=== PATIENT | male | born 1950 | race Caucasian/White ===

== ENCOUNTER 2016-12-14 06:25 | Day surgery (SDC) | payer MEDICARE, OTHER ==
[~2016-12-14] VITALS: Ht 193 cm; Wt 110.7 kg
[~2016-12-14 06:25] MED LIST: ATOR20TA PO; CANA100T PO; DILT180C51 PO; DUTA0.5C9 PO; EXEN2VIA SQ; FLEC100T2 PO; GEMF600T61 PO; GLYB5TAB8 PO; HYDR-2164 PO; INDO25CA PO; LISI10TA7 PO; METF10002 PO; RIVA20TA PO
--- OUTSIDE RECORDS SUMMARY | 2016-12-14 06:29 | XMS REPORT | Continuity of Care Document ---
Author Author Junie Walker RN Ambulatory Address [address] [place] [address] [place] [address] Phone Care Team Providers Care Filbert Grower Name Role Phone Jose Womack PP Unavailable Payers Payer name Insurance type Covered democrat ID Authorization(s) Unknown Problems Condition Effective Dates (start - stop) Clinical Status Hypertension, Benign - *Chronic Diabetes Mellitus Type 2, Uncomplicated - *Chronic Osteoarthrosis, unspecified whether generalized or localized, involving unspecified site - *Chronic Hypercholesterolemia - *Chronic Atrial Fibrillation - *Chronic Hypertension, Benign - Chronic Diabetes Mellitus Type 2, Uncomplicated - Chronic Osteoarthrosis, unspecified whether generalized or localized, involving unspecified site - Chronic Hypercholesterolemia - Chronic Atrial Fibrillation - Chronic Sleep Apnea, Obstructive - Uncertain Atrial Fibrillation - *Controlled Hypertension, Benign - *Chronic Diabetes Mellitus Type 2, Uncomplicated - *Chronic Osteoarthrosis, unspecified whether generalized or localized, involving unspecified site - *Chronic Hypercholesterolemia - *Chronic Hypertension, Benign - Chronic Diabetes Mellitus Type 2, Uncomplicated - Chronic Osteoarthrosis, unspecified whether generalized or localized, involving unspecified site - Chronic Hypercholesterolemia - Chronic Hypertension, Benign - *Chronic Diabetes Mellitus Type 2, Uncomplicated - *Chronic Osteoarthrosis, unspecified whether generalized or localized, involving unspecified site - *Chronic Hypercholesterolemia - *Chronic Atrial Fibrillation - *Chronic Hypertension, Benign - Chronic Diabetes Mellitus Type 2, Uncomplicated - Chronic Osteoarthrosis, unspecified whether generalized or localized, involving unspecified site - Chronic Hypercholesterolemia - Chronic Atrial Fibrillation - Chronic BPH - *Chronic PURE HYPERCHOLESTEROLEM - BENIGN HYPERTENSION - OSTEOARTHROS NOS-UNSPEC - DMII WO CMP NT ST UNCNTR - NEED FOR PROPHYLACTIC VACCINATION AND INOCULATION, OTHER VIRAL DISEASES - Hypertension, Benign - *Chronic Diabetes Mellitus Type 2, Uncomplicated - *Chronic Osteoarthrosis, unspecified whether generalized or localized, involving unspecified site - *Chronic Hypercholesterolemia - *Chronic Hypertension, Benign - *Chronic Diabetes Mellitus Type 2, Uncomplicated - *Chronic Hypercholesterolemia - *Chronic Osteoarthrosis, unspecified whether generalized or localized, involving unspecified site - *Chronic Hypertension, Benign - Chronic Diabetes Mellitus Type 2, Uncomplicated - Chronic Hypercholesterolemia - Chronic Osteoarthrosis, unspecified whether generalized or localized, involving unspecified site - Chronic Atrial Fibrillation - *Chronic Family History Family Member Diagnosis Age At Onset Status Unknown Social History Social History Element Description Quantity Unknown Allergies, Adverse Reactions, Alerts Substance Reaction Severity Status Unknown Medications Medication Instructions Dosage Effective Dates (start - stop) Status metoprolol succinate ER 100 mg tablet,extended release 24 hr take 1 tablet ( 100MG) by oral route every day 100 MG - Active metoprolol succinate ER 100 mg tablet,extended release 24 hr take 1 tablet ( 100MG) by oral route every day 100 MG - No Longer Active flecainide 100 mg tablet take 1 tablet (100MG) by oral route every 12 hours 100 MG - Active Viagra 100 mg tablet Take 0.5 tablets by mouth as directed. - Active warfarin 1 mg tablet take 1 tablet (1MG) by oral route every day 1 MG - Active indomethacin 50 mg capsule Take 1 tablet by mouth 3 times a day. 2012 - Active tramadol 50 mg tablet take 1 tablet (50MG) by oral route every 6 hours as needed 50 MG - Active Avodart 0.5 mg capsule take 1 capsule (0.5MG) by oral route every day 0.5 MG - Active Januvia 100 mg tablet take 1 tablet (100MG) by oral route every day 100 MG - Active warfarin 5 mg tablet take 1 tablet (5MG) by oral route every day 5 MG - Active glyburide 5 mg-metformin 500 mg tablet Take 1 tablet by mouth twice a day. - Active Lipitor 20 mg tablet Take 1 by mouth every day. - Active Lopid 600 mg tablet Take 1 tablet by mouth twice a day. - Active hydrochlorothiazide 25 mg tablet Take 1 tablet by mouth every day. 2012 - Active Lotrel 10 mg-20 mg capsule Take 1 capsule by mouth every day. - Active Bydureon 2 mg SubQ suspension,extended release inject (2MG) by subcutaneous route every 7 days once 2 MG - Active metformin 500 mg tablet Take 1 tablet by mouth twice a day. - Active Immunizations Vaccine Date Status Comments Zoster completed Td (adult) completed - Completed reason: other registry Results Test Name Date and Time Measure Units Reference Range Abnormal Flag Comments Panel Description: Metabolic Profile Glucose 07:52:00 195 mg/dL 70-99 H BUN 07:52:00 24 mg/dL 8-26 Creatinine 07:52:00 1.02 mg/dL 0.72-1.25 Calcium 07:52:00 10.3 mg/dL 8.9-10.5 Sodium 07:52:00 142 mEq/L 135-144 Potassium 07:52:00 4.3 mEq/L 3.5-5.2 Chloride 07:52:00 105 mEq/L 99-111 CO2 07:52:00 24 mEq/L 23-31 Anion Gap 07:52:00 13 3-20 Testing performed at [facility] Reference Lab [facility] [address] [place] [address] [employer] Elevator Operator Anderson Keller MD Panel Description: EGFR-[facility] eGFR 07:52:00 >60 mL/min >60 Multiply eGFR results by 1.21 for race.Testing performed at [facility] Reference Lab [facility] [address] [place] [address] [employer] Elevator Operator Anderson Keller MD Panel Description: Prostatic Specific Antigen-[facility] PSA 07:52:00 0.8 ng/mL 0.0-4.5 AUA PSA Best Practice Guidelines: Age-Adjusted PSA Values by Ethnic GroupAge Range Asians - Caucasians Epitzyied04-21 0-2.0 0-2.0 0-2.550-59 0-3.0 0-4.0 0-3.560-69 0-4.0 0-4.5 0-4.570-79 0-5.0 0-5.5 0-6.5Testing performed at [facility] Reference Lab [address] [place] [address] Freight Elevator Operator Anderson Keller MD Panel Description: Hemoglobin N3e-TFP Hemoglobin A1C 07:52:00 8.3 % 4.1-5.6 H Testing performed at [facility] [address] [place] [address] Fre[employer] Elevator Operator Anderson Keller MD Panel Description: EAG Calculation-[facility] Estimated Average Glucose 07:52:00 191.5 mg/dL Testing performed at [facility] [address] [place] [address] [employer] Elevator Operator Anderson Keller MD Panel Description: Protime Pt Type 07:52:00 basic Drug 07:52:00 Coumadin Date-Time Last Meds 07:52:00 09/01/2013 8:00PM Protime-INR 07:52:00 2.6 Units Normal INR(no anticoagulant) 0.8-1.2 UnitsAbnormal INR (no anticoagulant) >1.2 UnitsRoutine Therapeutic INR 2.0-3.0 UnitsTherapeutic (High-Risk) INR 2.5-3.5 Units Vital Signs Date / Time: Height Weight Pulse Rate Blood Pressure Temperature /10:09:00 75.00 in 271.00 lbs 68 /min 120/72 mm[Hg] 98.3 F Procedures Procedure Date Unknown Encounters Encounter Location Date Patient Visit [facility] Patient Visit [facility] Patient Visit [facility] Patient Visit [facility] Patient Visit [facility] Patient Visit [facility] Patient Visit [facility] Patient Visit [facility] Patient Visit [facility] Patient Visit [facility] Patient Visit [facility] Patient Visit [facility] Patient Visit [facility] Patient Visit [facility] Patient Visit [facility] Patient Visit [facility] Patient Visit [facility] Advance Directives Directive Effective Date Unknown
--- OUTSIDE RECORDS SUMMARY | 2016-12-14 06:29 | XMS REPORT | Continuity of Care Document ---
Author Author [facility] Organization [facility] Address Unknown Phone Unavailable Allergies Medications Problems Procedures Results Encounters ACCT No. Visit Date/Time Discharge Status Pt. Type Provider Facility Loc./Unit Complaint [id number] 09/02/2013 08:57:00 09/02/2013 23 :59:59 CLS Outpatient
[2016-12-14 06:52] VITALS: Ht 193 cm; Wt 110.7 kg
[2016-12-14 06:53] VITALS: BP 132/70; PULSE 56; RESP 16; TEMP 97.6; O2SAT 97
--- NOTE | 2016-12-14 07:24 | ANESPREOP ---
Anesthesia Record Date and Time DATE: 12/14/16 TIME: 07:22 Pre-Op Diagnosis cat. lt. eye Proposed Surgical Procedure CAT. LEFT EYE Allergies: Coded Allergies: No Known Drug Allergies (Verified Allergy, Unknown, 12/13/16) Ht/Wt/BMI Height: 6 ' 4.00 " Weight: 110.700 kg BMI: 29.7 kg/m2 Vital Signs Date Time Temp Pulse Resp B/P Pulse Ox O2 Delivery O2 Flow Rate FiO2 12/14/16 06:53 97.6 56 16 132/70 97 Room Air Medications Inpatient Medications Current Medications Medications (Trade) Dose Ordered Sig/Abdoulaye Start Time Stop Time Status Last Admin Dose Admin Gatifloxacin (Zymaxid) 1 drop Q5M 12/14/16 14:15 12/14/16 14:26 Cyclopentolate HCl (Cyclogyl 2%) 1 drop Q5M 12/14/16 14:15 12/14/16 14:26 Tropicamide (Mydriacyl 1% Eye Drops) 1 drop Q5M 12/14/16 14:15 12/14/16 14:26 Phenylephrine HCl (Julián-Synephrine 2.5% Eye Drops) 1 drop Q5M 12/14/16 14:15 12/14/16 14:26 Atorvastatin Calcium (Lipitor) 20 Mg Tablet, 1 TAB PO HS, (Reported) Canagliflozin (Invokana) 100 Mg Tablet, 1 TAB PO DAILY, (Reported) Diltiazem HCl (Cartia Xt) 180 Mg Capsule, 1 TAB PO DAILY, (Reported) Dutasteride (Avodart) 0.5 Mg Capsule, 0.5 MG PO DAILY, (Reported) Exenatide Microspheres (Bydureon) 2 Mg Vial, 2 MG SQ Weekly, (Reported) Flecainide Acetate (Flecainide Acetate) 100 Mg Tablet, 1 TAB PO BID, (Reported) Gemfibrozil (Gemfibrozil) 600 Mg Tablet, 600 MG PO BID, (Reported) Glyburide (Glyburide) 5 Mg Tablet, 1 TAB PO BID, (Reported) Hydrochlorothiazide (Hydrochlorothiazide) 25 Mg Tablet, 25 MG PO DAILY, ( Reported) Indomethacin (Indomethacin) 25 Mg Capsule, 25 MG PO, (Reported) Lisinopril (Lisinopril) 10 Mg Tablet, 10 MG PO DAILY, (Reported) Metformin HCl (Metformin HCl) 1,000 Mg Tablet, 1 TAB PO BIDWM, (Reported) Take one tablet, by mouth, twice daily with meals Rivaroxaban (Xarelto) 20 Mg Tablet, 1 TAB PO DAILY, (Reported) Last Taken: on 12/10/16 Currently on Beta Franny: Yes Medical/Surgical History Anesthesia PMH: Reports: *Diabetes, *Hypertension, Arthritis, Cardiac Arrythmia (a-fib), Clotting Problems (XARELTO), Obesity, Sleep Apnea (USES CPAP) , Denies: *Angina, *Dyspnea, *OH, Anesthesia Reactions (NO AIRWAY ISSUES ), Asthma, CHF, COPD, Cancer, Deep Vein Thrombosis, Glaucoma, Malignant Hyperthermia, Pneumonia, Rheumatic Fever, Thyroid Disease, Tuberculosis Smoking Status: Never smoker Has pt. smoked today?: No Use Chewing Tobacco?: No Second Hand Exposure: No Substance Use Type: does not use Substance last used: unknown Alcohol Intake: none Last Drink: unknown Past Surgical History Orthopedic Surgeries: Yes - KNEE SCOPE,bilat knee surgeries Abdominal Surgeries: Genitourinary Surgeries: Cardiac Surgeries: Yes - CARDIOVERSION Endocrine Surgeries: Reproductive Surgeries: Neurological Surgeries: Ear Surgeries: Nose Surgeries: Throat Surgeries: Other Surgeries: - KNEE SCOPE Anesthesia Adverse Reactions: FOUND none Family Hx of Anesthesia Advers: none Hx of Motion Sickness: No Pertinent Findings EKG Rhythm: Sinus Rhythm Physical Exam Respiratory: Bilat breath sounds equal, Lungs clear Cardiovascular: FOUND Regular rate, rhythm Airway Assessment Mallampati Score: II TMD: 2 Fingerbreadths Neck Extension: Fair Overall Assessment: May Be Diff Mask Vent., May Be Diff Intubation ASA: 3 Plan Anesthesia Plan: MAC Discussion Discussed risks/options/alternatives of anesthesia and questions answered. Patient consents. Nursing pain assessment noted. Attestation Statement Prior to the delivery of any anesthetic medication, I examined the patient, developed the plan, obtained the patient's consent and discussed the risk and benefits of the procedure with the patient/guardian. VIKKI WILD CRNA Dec 14, 2016 07:24
[2016-12-14] MEDS: PHENYLEPHRINE 2.5% EYE DROPS 5ml LEFT EYE SCH ×3 (07:26→07:39)
[2016-12-14] MEDS: GATIFLOXACIN 0.5% EYE DROPS 2.5ml LEFT EYE SCH ×3 (07:26→07:39)
[2016-12-14] MEDS: TROPICAMIDE 1% EYE DROPS 3ml LEFT EYE SCH ×3 (07:27→07:39)
[2016-12-14] MEDS: CYCLOPENTOLATE 1% EYE DROPS 2 ML BOTTLE LEFT EYE SCH ×2 (07:33→07:35)
[2016-12-14] MEDS ORDERED: FENTANYL 100mcg/2ml INJECTION ONE (08:41)
[2016-12-14] MEDS ORDERED: MIDAZOLAM 2mg/2ml INJECTION ONE (08:41)
[2016-12-14] MEDS ORDERED: SALINE FLUSH 10ml SYRINGE ONE (09:46)
[2016-12-14 09:53] VITALS: BP 137/78; PULSE 58; RESP 12; TEMP 97.6; O2SAT 96
--- NOTE | 2016-12-14 10:03 | ANESPO ---
Post-Op Note Date 12/14/16 Time: 10:02 Status Pt Participated in Evaluation: Pt participated in person Vital Signs Date Time Temp Pulse Resp B/P Pulse Ox O2 Delivery O2 Flow Rate FiO2 12/14/16 09:53 97.6 58 12 137/78 96 Room Air Respiratory Function: Airway patent, Regular respirations Cardiovascular Function: Regular pulse Mental Status: Alert/oriented Pain Level Intensity: 0 Hydration: Taking po fluids, IV infusing Complications during Recovery None apparent Post-Anesthesia Notes pt. janet. well Follow-Up Instructions Instructions Per Surgeon Additional Information none VIKKI WILD CRNA Dec 14, 2016 10:03
[2016-12-14 10:05] VITALS: BP 139/71; PULSE 60; RESP 18; O2SAT 93
[2016-12-14 10:20] VITALS: BP 122/62; PULSE 56; RESP 17; O2SAT 93
[2016-12-14 10:35] VITALS: BP 119/71; PULSE 62; RESP 20; O2SAT 96
[2016-12-14] MEDS ORDERED: LIDOCAINE 1% (10mg/ml) 2ml SDV INJ ONE (14:00)
[2016-12-14] MEDS ORDERED: CYCLOPENTOLATE 2% EYE DROPS 2ml LEFT EYE SCH (14:15)
[2016-12-14] MEDS ORDERED: LIDOCAINE 3.5% EYE GEL PF 1ml OP ONE (14:15)
[2016-12-14] MEDS ORDERED: EPINEPHRINE 1mg/ml Pres.Free vl IO ONE (15:34)
[2016-12-14] MEDS ORDERED: ACETYLCHOLINE (MIOCHOL-E) OCULAR SYSTEM IO ONE (15:34)
[2016-12-14] MEDS ORDERED: TETRACAINE 0.5% EYE DROPS 4ml BOTTLE OP ONE (15:34)
[2016-12-14] MEDS ORDERED: NS FOR INJ. 20 ML VIAL INJ ONE (15:34)
[2016-12-14] MEDS ORDERED: LIDOCAINE 1% (10mg/ml) 30ml SDV IJ ONE (15:34)
[2016-12-14] MEDS ORDERED: PrednisoLONE 1% EYE DROPS 5ml LEFT EYE ONE (15:34)
[2016-12-14] MEDS ORDERED: BRIMONIDINE 0.2% EYE DROPS 5ml BOTH EYES ONE (15:34)
[2016-12-14] MEDS ORDERED: VANCOMYCIN 500 MG INJECTION IV ONE (15:34)
[2016-12-15] MEDS ORDERED: CYCLOPENTOLATE 1% EYE DROPS 2 ML BOTTLE LEFT EYE SCH (07:30)
--- NOTE | 2016-12-15 08:57 | OPNOTEF ---
DATE OF PROCEDURE 12/14/2016 PREOPERATIVE DIAGNOSIS Visually significant cataract, left eye. POSTOPERATIVE DIAGNOSIS Visually significant cataract, left eye. PROCEDURE Cataract extraction, left eye, and anterior vitrectomy, left eye. SURGEON Dr. Tyler Mosquera DESCRIPTION OF PROCEDURE The patient was given topical ophthalmic dilating drops, 2.5% phenylephrine, 1% tropicamide, 1% cyclopentolate, topical antibiotic drop Zymaxid and topical 2% Xylocaine gel q. 5 minutes x 3 prior to arrival to the OR into the left eye. In the OR the area about the left eye was prepped and draped in the usual sterile fashion with topical Betadine and 5% Betadine eye drops into the left eye. The procedure began and was done entirely under the operating microscope. A sterile lid speculum was placed into the left eye and removed at the end of the procedure. Using a 1.2 mm blade, two paracentesis side ports were made approximately 180 degrees apart. 1% preservative-free lidocaine was instilled into the eye followed by Viscoat. Using a 2.4-mm keratome, a temporal clear corneal incision was made. Using a cystotome and capsulorhexis forceps, an anterior capsulotomy was made. The lens nucleus was then loosened from surrounding cortical material by hydrodissection. Phacoemulsification handpiece was then introduced into the eye and the lens nucleus was successfully phacoemulsified using 8.86 CDE units of phacoemulsification power. Hydrodissection was done again to loosen cortical material from the capsule and the irrigation-aspiration handpieces were used to strip away cortical material. At that point it was noticed that there was a rent in the posterior capsule and an anterior vitrectomy was successfully performed removing all nuclear and cortical material. Some provisc was then instilled into the eye. At that point spontaneous bleeding occurred in the nasal area of the angle and there was blood in the eye. Anterior vitrector was used to remove some of the blood; however, visualization in that area was quite obscured. The area was observed and the blood caused decreased visualization to where it was not possible to see properly to place an intraocular lens. Also, there was a spontaneous bleed and the introduction of the lens could have exacerbated the bleeding, so it was elected to not insert an IOL at this time but to bring the patient back another time to insert an intraocular lens. Viscoelastics had been removed when the IA vitrector was reintroduced into the eye. Miochol was instilled into the eye and the pupil came down to approximately 5 mm. 1 mg of vancomycin dissolved in 0.1 cc of saline was instilled in the eye. The incisions were hydrated to seal them, were tested and noted to be watertight. Drops of Zymaxid, Pred Forte and brimonidine were dropped onto the left eye and a shield taped over the eye, completing the procedure. Blood loss was minimal, less than 0.1 cc. The patient left the operating room in good condition. RADHA
== END 2016-12-14 10:35 | disposition home or self-care (01) ==
LOC: NSC 06:25
PROVIDERS: ATTEND Ophthalmology
DX: H25.812 Combined forms of age-related cataract, left eye (principal); I10 Essential (primary) hypertension; I48.91 Unspecified atrial fibrillation; E11.9 Type 2 diabetes mellitus without complications; G47.30 Sleep apnea, unspecified; Z79.01 Long term (current) use of anticoagulants; Z79.84 Long term (current) use of oral hypoglycemic drugs; Z79.899 Other long term (current) drug therapy; Z99.81 Dependence on supplemental oxygen
CPT/HCPCS: 66920; 82948; J0171; J2250; J3010; J3370

== ENCOUNTER 2017-02-08 06:53 | Day surgery (SDC) | payer MEDICARE, OTHER ==
[2017-02-08] VITALS (11 sets, daily range): BP systolic 104–143; BP diastolic 56–95; PULSE 52–72; RESP 14–22; TEMP 97.6–98.1; O2SAT 93–98; Ht 191.8 cm; Wt 107.2 kg
[~2017-02-08] VITALS: Ht 191.8 cm; Wt 107.2 kg
--- OUTSIDE RECORDS SUMMARY | 2017-02-08 06:57 | XMS REPORT | Continuity of Care Document ---
Author Author [facility] Organization [facility] Address Unknown Phone Unavailable Support Name Relationship Address Phone GERARDO LEE MD Caregiver [address] [place] [address] Unavailable ISAC MOLINA MD Caregiver [address] [place] [address] Unavailable RICH GAO Next Of Kin [address] [place] [address] Insurance Providers Guarantor Meenakshi Gao Jr Address [address] [place] [address] Email [email or web address] Payer [employer] Medicare Supplement Policy Number [id number] Subscriber's Name Meenakshi Gao Jr Relationship 18 Self Group Number PLAN Payer Medicare Policy Number [id number] Subscriber's Name Meenakshi Gao Jr Relationship 18 Self Advance Directives Directive Response Recorded Date/Time Ordered Resuscitation Status Full Code 12/13/16 2:17pm Resuscitation Documents on File No 12/14/16 7:31am DPOA for Healthcare Only Yes 12/14/16 7:31am Living Will Yes 12/14/16 7:31am Problems No problem information available. Medications Current Home Medications Medication Dose Units Route Directions Days Qty Instructions Start Date Atorvastatin Calcium (Lipitor) 20 Mg Tablet 1 Tab Oral Bedtime Canagliflozin (Invokana) 100 Mg Tablet 1 Tab Oral Daily 90 Diltiazem Hcl (Cartia Xt) 180 Mg Capsule 1 Tab Oral Daily 30 12/13 Dutasteride (Avodart) 0.5 Mg Capsule 0.5 Mg Oral Daily 07/20/10 Exenatide Microspheres (Bydureon) 2 Mg Vial 2 Mg Sub-Q Weekly 11/14 Flecainide Acetate 100 Mg Tablet 1 Tab Oral Twice A Day 60 Tablet 12/13/16 Gemfibrozil 600 Mg Tablet 600 Mg Oral Twice A Day 11/03/12 Glyburide 5 Mg Tablet 1 Tab Oral Twice A Day 12/13/16 Hydrochlorothiazide 25 Mg Tablet 25 Mg Oral Daily 07/20/10 Indomethacin 25 Mg Capsule 25 Mg Oral 08/03/10 Lisinopril 10 Mg Tablet 10 Mg Oral Daily for Hypertension Metformin Hcl 1,000 Mg Tablet 1 Tab Oral Twice Daily With Meals Take one tablet, by mouth, twice daily with meals 12/13/16 Rivaroxaban (Xarelto) 20 Mg Tablet 1 Tab Oral Daily 30 12/13/16 Past Home Medications Medication Directions Ordered Status Ezetimibe/Simvastatin (Vytorin 10-20 Mg Tablet) 1 Tab Tablet, 1 Tab Oral Daily 07/20/10 Discontinued Metformin Hcl 500 Mg Tablet, 500 Mg Oral Twice A Day 07/20/10 Discontinued Sitagliptin Phosphate (Januvia) 100 Mg Tablet, 100 Mg Oral Daily 07/20/10 Discontinued Sotalol Hcl (Sotalol) 120 Mg Tablet, 120 Mg Oral 08/03/10 Discontinued Trilipix , 135 Mg Oral D 07/20/10 Discontinued Warfarin Sodium 2 Mg Tablet, 2 Mg Oral 08/03/10 Discontinued Social History Social History Problem Response Recorded Date/Time Onset Date Status Chewing Tobacco Status No 12/13/2016 12:02pm Not Applicable Not Applicable Hx Substance Use No 12/13/2016 12:02pm Not Applicable Not Applicable Hx Alcohol Use No 12/13/2016 12:02pm Not Applicable Not Applicable Has the pt used tobacco in the last 12 months No 12/13/2016 12:02pm Not Applicable Not Applicable Query Response Start Date Stop Date Smoking Status Never smoker Hospital Discharge Instructions No hospital discharge instructions. Plan of Care Discharge Date 12/14/16 10:35am Prescriptions See Medication Section Functional Status Query Response Date Recorded Ability to complete ADL's impeded by No change December 14, 2016 7:31am Allergies, Adverse Reactions, Alerts Allergen Type Severity Reaction Status Last Updated No Known Drug Allergies Allergy Unknown Active 12/14/16 Immunizations Query Response on File Recorded Date/Time Hx Influenza Vaccination N don't take it 12/13/16 12:02pm Hx Pneumococcal Vaccination Yes 12/13/16 12:02pm Hx Influenza Vaccination N don't take it 12/13/16 12:02pm Vital Signs Acute Vital Signs Vital Response Date/Time Temperature (Fahrenheit) 97.6 deg F (96.8 - 99.1) 12/14/2016 9:53am Temperature (Calculated Celsius) 36.37038 degrees C (36.0 - 37.3) 12/14/2016 9:53am Temperature Source Temporal 12/14/2016 9:53am Pulse Rate (adult) 62 bpm (60 - 100) 12/14/2016 10:35am Respiratory Rate 20 breaths/min (10 - 20) 12/14/2016 10:35am O2 Sat by Pulse Oximetry 96 % (90 - 100) 12/14/2016 10:35am Oxygen Delivery Method Room Air 12/14/2016 10:35am Blood Pressure 119/71 mm Hg 12/14/2016 10:35am Blood Pressure Source Automatic Cuff 12/14/2016 10:35am Height (Feet) 6 feet 12/14/2016 6:52am Height (Inches) 4.00 inches 12/14/2016 6:52am Weight (Kilograms) 110.700 kg 12/14/2016 6:52am Body Mass Index (BMI) 29.7 12/14/2016 6:52am Results Laboratory Results Test Name Result Units Flags Reference Collection Date/Time Result Date/ Time Comments Glucometer 223 mg/dL H 75-110 12/14/2016 6:50am 12/14/2016 6:53am Procedures Procedure Status Date Provider(s) Cataract extraction, left Completed 12/14/16 GERARDO LEE MD Encounters Encounter Location Arrival/Admit Date Discharge/Depart Date Attending Provider Departed [facility] 12/14/16 6:25am 12/14/16 10 :35am GERARDO LEE MD
--- OUTSIDE RECORDS SUMMARY | 2017-02-08 06:57 | XMS REPORT | Continuity of Care Document ---
Author Author [facility] Organization [facility] Address Unknown Phone Unavailable Allergies Active Description Code Type Severity Reaction Onset Reported/Identified Relationship to Patient Clinical Status Yes No Known Allergies No Known Allergies Drug Allergy Unknown N/A 01/09/2017 Yes No Known Drug Allergies No Known Drug Allergies Drug Allergy Unknown . 01/10/2017 Medications Problems Procedures Results Test Result Range GLUCOSE (POC) - 01/10/17 11:40 GLUCOSE (POC) 201 mg/dL 70-99 HEMOGLOBIN - 01/10/17 11:40 MEAN CELL VOLUME 88.8 fl 80.0-100.0 HEMOGLOBIN 13.7 gm/dL 14.0-18.0 METABOLIC PANEL, BASIC - 01/10/17 11:40 POTASSIUM 4.7 mmol/L 3.5-5.3 EST GFR (MDRD) > 60 mL/min > 59 ANION GAP 11 mmol/L 5-15 GLUCOSE 209 mg/dL 70-99 CALCIUM 10.1 mg/dL 8.5-10.1 BLOOD UREA NITROGEN 34 mg/dL 7-20 CREATININE 1.1 mg/dL 0.7-1.3 SODIUM 133 mmol/L 135-148 CHLORIDE 100 mmol/L 98-110 CARBON DIOXIDE 22 mmol/L 21-32 GLUCOSE (POC) - 01/10/17 15:24 GLUCOSE (POC) 146 mg/dL 70-99 Encounters ACCT No. Visit Date/Time Discharge Status Pt. Type Provider Facility Loc./Unit Complaint [id number] 09/02/2013 08:57:00 09/02/2013 23 :59:59 CLS Outpatient
--- NOTE | 2017-02-08 07:25 | ANESPREOP ---
Anesthesia Record Date and Time DATE: 02/08/17 TIME: 07:22 Pre-Op Diagnosis lt. cat. Proposed Surgical Procedure insertion of iol, not associated with concurrent side Allergies: Coded Allergies: No Known Drug Allergies (Verified Allergy, Unknown, 02/07/17) Ht/Wt/BMI Height: 6 ' 3.50 " Weight: 107.200 kg BMI: 29.2 kg/m2 Vital Signs Date Time Temp Pulse Resp B/P Pulse Ox O2 Delivery O2 Flow Rate FiO2 02/08/17 07:09 98.1 71 16 128/74 94 Room Air Medications Inpatient Medications Current Medications Medications (Trade) Dose Ordered Sig/Abdoulaye Start Time Stop Time Status Last Admin Dose Admin Gatifloxacin (Zymaxid) 1 drop Q5M 02/08/17 13:00 02/08/17 13:11 Cyclopentolate HCl (Cyclate 1%) 1 drop Q5M 02/08/17 13:00 02/08/17 13:11 Tropicamide (Mydriacyl 1% Eye Drops) 1 drop Q5M 02/08/17 13:00 02/08/17 13:11 Phenylephrine HCl (Julián-Synephrine 2.5% Eye Drops) 1 drop Q5M 02/08/17 13:00 02/08/17 13:11 Atorvastatin Calcium (Lipitor) 20 Mg Tablet, 1 TAB PO HS, (Reported) Canagliflozin (Invokana) 100 Mg Tablet, 1 TAB PO DAILY, (Reported) Diltiazem HCl (Cartia Xt) 180 Mg Capsule, 1 TAB PO DAILY, (Reported) Dutasteride (Avodart) 0.5 Mg Capsule, 0.5 MG PO DAILY, (Reported) Exenatide Microspheres (Bydureon) 2 Mg Vial, 2 MG SQ Weekly, (Reported) Flecainide Acetate (Flecainide Acetate) 100 Mg Tablet, 1 TAB PO BID, (Reported) Gemfibrozil (Gemfibrozil) 600 Mg Tablet, 600 MG PO BID, (Reported) Glyburide (Glyburide) 5 Mg Tablet, 1 TAB PO BID, (Reported) Hydrochlorothiazide (Hydrochlorothiazide) 25 Mg Tablet, 25 MG PO DAILY, ( Reported) Indomethacin (Indomethacin) 25 Mg Capsule, 25 MG PO, (Reported) Lisinopril (Lisinopril) 10 Mg Tablet, 10 MG PO DAILY, (Reported) Metformin HCl (Metformin HCl) 1,000 Mg Tablet, 1 TAB PO BIDWM, (Reported) Take one tablet, by mouth, twice daily with meals Rivaroxaban (Xarelto) 20 Mg Tablet, 1 TAB PO DAILY, (Reported) Last Taken: on 01/30/17 Currently on Beta Franny: Yes Medical/Surgical History Anesthesia PMH: Reports: *Diabetes, *Hypertension, Arthritis, Cardiac Arrythmia (a-fib), Clotting Problems (XARELTO), Obesity, Sleep Apnea (has cpap) , Denies: *Angina, *Dyspnea, *NH, Anesthesia Reactions (NO AIRWAY ISSUES ), Asthma, CHF, COPD, Cancer, Deep Vein Thrombosis, Glaucoma, Malignant Hyperthermia, Pneumonia, Rheumatic Fever, Thyroid Disease, Tuberculosis Smoking Status: Former smoker Has pt. smoked today?: No Use Chewing Tobacco?: No Second Hand Exposure: No Substance Use Type: does not use Substance last used: unknown Alcohol Intake: none Last Drink: unknown Past Surgical History Orthopedic Surgeries: Yes - KNEE SCOPE,bilat knee surgeries Abdominal Surgeries: Genitourinary Surgeries: Cardiac Surgeries: Yes - CARDIOVERSION Endocrine Surgeries: Reproductive Surgeries: Neurological Surgeries: Ear Surgeries: Nose Surgeries: Throat Surgeries: Other Surgeries: Yes - CARDIOVERSION Anesthesia Adverse Reactions: FOUND none Hx of Motion Sickness: No Pertinent Findings EKG Rhythm: Sinus Rhythm Physical Exam Respiratory: Bilat breath sounds equal, Lungs clear Cardiovascular: FOUND Regular rate, rhythm, FOUND No murmur Airway Assessment Mallampati Score: II TMD: 3 Fingerbreadths Neck Extension: Fair Overall Assessment: No Airway Concerns ASA: 3 Plan Anesthesia Plan: MAC Discussion Discussed risks/options/alternatives of anesthesia and questions answered. Patient consents. Nursing pain assessment noted. Attestation Statement Prior to the delivery of any anesthetic medication, I examined the patient, developed the plan, obtained the patient's consent and discussed the risk and benefits of the procedure with the patient/guardian. VIKKI WILD CRNA February 08, 2017 07:25
[2017-02-08] MEDS: CYCLOPENTOLATE 1% EYE DROPS 2 ML BOTTLE LEFT EYE SCH ×3 (07:33→07:49)
[2017-02-08] MEDS: TROPICAMIDE 1% EYE DROPS 3ml LEFT EYE SCH ×3 (07:33→07:48)
[2017-02-08] MEDS: PHENYLEPHRINE 2.5% EYE DROPS 5ml LEFT EYE SCH ×3 (07:33→07:48)
[2017-02-08] MEDS: GATIFLOXACIN 0.5% EYE DROPS 2.5ml LEFT EYE SCH ×3 (07:34→07:49)
[2017-02-08] MEDS ORDERED: MIDAZOLAM 2mg/2ml INJECTION ONE (09:28)
[2017-02-08] MEDS ORDERED: FENTANYL 100mcg/2ml INJECTION ONE (09:28)
[2017-02-08] MEDS ORDERED: SALINE FLUSH 10ml SYRINGE ONE (09:32)
--- NOTE | 2017-02-08 10:20 | NUR ---
STATUS DR LEE IN ROOM TO VISIT WITH PATIENT POSTOP. PATIENT C/O SEVERE PAIN ABOVE AND TO THE LEFT SIDE OF LEFT EYE. DR. LEE ADMINISTERED LIDOCAINE OINTMENT TO PATIENT LEFT EYE AT THIS TIME. ORDER RECEIVED TO GIVEN DIAMOX ORDERED AND TWO TYLENOL EXTRA STRENGTH. WILL CONTINUE TO MONITOR.
[2017-02-08] MEDS ORDERED: acetaZOLAMIDE SR 500 MG CAPSULE PO ONE (10:30)
[2017-02-08] MEDS: ACETAMINOPHEN 500 MG TABLET PO ONE ×2 (10:30→10:33)
--- NOTE | 2017-02-08 10:33 | ANESPO ---
Post-Op Note Date 02/08/17 Time: 10:31 Status Pt Participated in Evaluation: Pt participated in person Vital Signs Date Time Temp Pulse Resp B/P Pulse Ox O2 Delivery O2 Flow Rate FiO2 02/08/17 07:09 98.1 71 16 128/74 94 Room Air Respiratory Function: Airway patent, Regular respirations Cardiovascular Function: Regular pulse Mental Status: Alert/oriented Pain Level Intensity: 8 Hydration: Taking po fluids Complications during Recovery None apparent Post-Anesthesia Notes pt. having significant amout of pain post op. Follow-Up Instructions Instructions Per Surgeon Additional Information having pain VIKKI WILD CRNA February 08, 2017 10:33
--- NOTE | 2017-02-08 10:45 | NUR ---
STATUS PATIENT CONTINUES TO C/O SEVERE PAIN TO LEFT EYE AREA. STATES HE NEEDS SOMETHING FOR PAIN NOW. DR. LEE AND LELE WILD RELAY MAN NOTIFIED VIA PHONE OF PATIENT STATUS. ORDER RECEIVED FOR MORPHINE SULFATE 5 MG IV X 1 NOW. MAY REPEAT IN 10 MINUTES IF NEEDED PER ORDER. WILL CONTINUE TO MONITOR.
[2017-02-08] MEDS: MORPHINE 10mg/ml vl INJECTION IV PRN ×2 (10:51→11:08)
[2017-02-08] MEDS: ONDANSETRON 4mg/2ml INJECTION IV ONE ×2 (11:27→11:30)
--- NOTE | 2017-02-08 11:35 | NUR ---
STATUS JAN [place] WITH DR. LEE'S OFFICE IN ROOM TO CHECK INTRAOCULAR PRESSURE AT THIS TIME.
--- NOTE | 2017-02-08 12:05 | NUR ---
STATUS DR. LEE IN ROOM TO VISIT WITH PATIENT POSTOP. ICE PLACED TO LEFT FOREHEAD PER DR. LEE ORDER AT THIS TIME. WILL CONTINUE TO MONITOR.
--- NOTE | 2017-02-08 12:12 | NUR ---
STATUS DR. LEE IN ROOM TO VISIT WITH PATIENT AND PATIENT SPOUSE POSTOP. PATIENT STATES ICE IS HELPING WITH PAIN. RN GIVEN PERMISSION TO DISMISS PATIENT TO HOME
[2017-02-08] MEDS ORDERED: LIDOCAINE 3.5% EYE GEL PF 1ml OP ONE (13:00)
[2017-02-08] MEDS ORDERED: LIDOCAINE 1% (10mg/ml) 2ml SDV INJ ONE (13:00)
[2017-02-08] MEDS ORDERED: LIDOCAINE 1% (10mg/ml) 30ml SDV IJ ONE (22:00)
[2017-02-08] MEDS ORDERED: VANCOMYCIN 500 MG INJECTION IV ONE (22:00)
[2017-02-08] MEDS ORDERED: ACETYLCHOLINE (MIOCHOL-E) OCULAR SYSTEM IO ONE (22:00)
[2017-02-08] MEDS ORDERED: TETRACAINE 0.5% EYE DROPS 4ml BOTTLE OP ONE (22:00)
[2017-02-08] MEDS ORDERED: BRIMONIDINE 0.2% EYE DROPS 5ml BOTH EYES ONE (22:00)
[2017-02-08] MEDS ORDERED: PrednisoLONE 1% EYE DROPS 5ml LEFT EYE ONE (22:00)
[2017-02-08] MEDS ORDERED: NS FOR INJ. 20 ML VIAL INJ ONE (22:00)
[2017-02-08] MEDS ORDERED: LIDOCAINE 4% (40mg/ml) INJ. PF 5ml AMP INFIL ONE (22:00)
[2017-02-08] MEDS ORDERED: EPINEPHRINE 1mg/ml Pres.Free vl IO ONE ×2 (22:00)
--- NOTE | 2017-02-10 13:12 | OPNOTEF ---
DATE OF OPERATION 02/08/2017 PREOPERATIVE AND POSTOPERATIVE DIAGNOSES Aphakia, left eye. PROCEDURE Insertion of posterior chamber intraocular lens in the left eye. SURGEON Tyler Mosquera M.D. DESCRIPTION OF PROCEDURE The patient was given topical ophthalmic dilating drops, 2.5% phenylephrine, 1% tropicamide, 1% Cyclopentolate, topical antibiotic drops gatifloxacin and topical 2% Xylocaine gel q. 5 minutes x 3 prior to arrival to the OR into the left eye. In the OR, the area about the left eye was prepped and draped in the usual sterile fashion with topical Betadine and 5% Betadine eyedrops into the left eye. The procedure began and was done entirely under the operating microscope. A sterile lid speculum was placed into the left eye and removed at the end of the procedure. Using a 1.2-mm blade, two paracentesis side ports were made approximately 180 degrees apart. 1% preservative-free lidocaine with epinephrine was instilled into the eye followed by Viscoat. Using a 2.4-mm keratome, a temporal clear corneal incision was made. The pupil did not dilate well even though solution with epinephrine was instilled into the eye. The iris was then pushed back with Viscoat and noted that there were two small adhesions from the iris to the anterior capsule. These were successfully broken with the Viscoat, the iris from the anterior capsule. Provisc was then instilled into the eye and a Hoya lens, model #230, with a power of 21 diopters was inserted into the sulcus of the left eye. Viscoelastic was removed with the irrigation/aspiration handpiece. Then Miocol was instilled into the eye and the pupil came down to approximately 3.5 mm. 1 mg of vancomycin dissolved in 0.1 cc of normal saline was instilled into the eye. Incisions were hydrated to seal them, were tested, and noted to be watertight. Drops of Zymaxid, Pred Forte and Brimonidine were dropped onto the left eye and a shield taped over the eye, completing the procedure. Blood loss was minimal, less than 0.1 cc. There were no complications. The patient left the operating room in good condition. RADHA
== END 2017-02-08 12:30 | disposition home or self-care (01) ==
LOC: NSC 06:53
PROVIDERS: ATTEND Ophthalmology
DX: H27.02 Aphakia, left eye (principal); Z79.899 Other long term (current) drug therapy; Z79.02 Long term (current) use of antithrombotics/antiplatelets; Z79.84 Long term (current) use of oral hypoglycemic drugs
CPT/HCPCS: 66985; 82948; A9270; C1780; J0171; J2250; J2405; J3010; J3370

== ENCOUNTER 2017-02-21 14:43 | Inpatient (IN) ==
[2017-03-02] MEDS ORDERED: BISACODYL 10 MG SUPPOSITORY RECTALLY PRN (05:00)
[2017-03-02] MEDS ORDERED: MORPHINE SULFATE 4 MG SYRINGE IVP PRN (05:00)
[2017-03-02] MEDS ORDERED: ACETAMINOPHEN 325 MG TABLET PO PRN (05:00)
[2017-03-02] MEDS ORDERED: ONDANSETRON 4 MG/2 ML INJECTION IVP PRN (05:00)
[2017-03-02] MEDS ORDERED: INSULIN REGULAR, HUMAN 100 UNIT/ML INJECTION SQ PRN (05:00)
[2017-03-02] MEDS ORDERED: SALINE FLUSH 10ml SYRINGE IVF PRN (05:00)
[2017-03-02] MEDS ORDERED: MAG-AL + SIM ORAL LIQUID 30ml PO PRN (05:00)
[2017-03-02] MEDS ORDERED: DEXTROSE 50% SYRINGE 50ml (1 AMP) IVP PRN (05:00)
[2017-03-02] MEDS ORDERED: GLUCOSE ORAL GEL 40% 37.5gm PO PRN (05:00)
[2017-03-02] MEDS ORDERED: NITROGLYCERIN 0.4 MG SUBLINGUAL TABLET SL PRN (05:00)
[2017-03-02] MEDS: PrednisoLONE 1% EYE DROPS 5ml LEFT EYE SCH (07:34)
[2017-03-02] MEDS: FLECAINIDE 100 MG TABLET PO SCH ×2 (08:39→21:12)
[2017-03-02] MEDS: acetaZOLAMIDE SR 500 MG CAPSULE PO SCH ×2 (08:41→21:09)
[2017-03-02] MEDS: GLYBURIDE 5 MG TABLET PO SCH ×2 (08:41→17:11)
[2017-03-02] MEDS: GABAPENTIN 600 MG TABLET PO SCH ×3 (08:41→21:09)
[2017-03-02] MEDS: POLYETHYL GLYCOL 3350 17gm PACKET PO SCH (08:44)
[2017-03-02] MEDS: DULOXETINE 30 MG CAPSULE PO SCH (08:44)
[2017-03-02] MEDS: METFORMIN 500 MG TABLET PO SCH ×2 (08:46→17:10)
[2017-03-02] MEDS: MORPHINE SULFATE 30 MG PO SCH ×2 (08:46→21:21)
[2017-03-02] MEDS: SODIUM BICARBONATE 650 MG TABLET PO SCH ×2 (08:47→21:09)
[2017-03-02] MEDS: BRIMONIDINE/TIMOLOL 0.2%-0.5% EYE DROPS 5ml LEFT EYE SCH ×3 (08:47→21:18)
[2017-03-02] MEDS: ACYCLOVIR 5% OINT 5gm TP SCH ×5 (08:47→21:19)
--- NOTE | 2017-03-02 11:31 | Progress Note ---
Subjective: Pt reports his headache is actually better, denies any n/v, f/c, cp or sob. Discussed with pt the benefit in complying with psych recommendations. Pt denies in SI/HI. Objective Vital signs: Temp Pulse Resp BP Pulse Ox 95.6 F L 73 18 115/67 97 03/02/17 07:43 03/02/17 07:43 03/02/17 07:43 03/02/17 07:43 03/02/17 07:43 Rhythm: Normal Sinus Rhythm Weight: 105.7 kg - Constitutional Present: no acute distress, well nourished, well developed - Routine HEENT Exam Head: Present: normocephalic, atraumatic Eye: Present: EOMI. Absent: conjunctivae pink - Routine Respiratory Exam Present: CTA bilaterally. Absent: stridor, wheezes - Routine Cardiovascular Exam Present: RRR, no murmur - Routine Abdominal Exam Present: soft. Absent: tenderness, distended - Routine Extremities Exam Present: edema. Absent: cyanosis, clubbing - Routine Musculoskeletal Exam Musculoskeletal: no clubbing or cyanosis, no tenderness - Routine Skin Exam Present: intact, dry Results - Labs CBC & Chem 7: 02/27/17 05:08 03/02/17 05:10 Labs: BMP 03/01/17 03/02/17 04:21 05:10 Sodium 143 144 Potassium 3.8 3.7 Chloride 114 H 112 H Carbon Dioxide 18 L 21 L BUN 18.0 18.0 Creatinine 0.9 D 0.9 Glucose 139 H 113 H Calcium 9.1 8.9 Liver Function 03/01/17 03/02/17 Range/Units 04:21 05:10 Albumin 3.5 3.4 L (3.5-5.0) G/DL - ABG Interpretation ABG results: 03/01/17 12:40 ABG pH 7.320 L ABG pCO2 36 ABG HCO3 19 L ABG Total CO2 19.6 L ABG O2 Saturation 95.0 ABG Base Excess -6.9 L Assessment and Plan (1) HTN (hypertension) Current visit: Yes Status: Chronic (2) Diabetes mellitus Current visit: Yes Status: Chronic (3) Afib Current visit: Yes Status: Chronic (4) CKD (chronic kidney disease) Current visit: Yes Status: Chronic (5) MANNIE (obstructive sleep apnea) Current visit: Yes Status: Chronic Assessment and Plan: Hospital Course Summary 02/[address] patient in inpatient admission status at [facility] under the care of Dr. Castro. Will initiate CCU monitoring overnight to make sure we are seeing blood pressure improvement. He has received 2 liters of IV fluids (30 mg/kg bolus would be around 3 liters). Blood pressure is already starting to improve. Initial lactate is not excessively elevated but will recheck. Start Rocephin for antimicrobial coverage - source uncertain. Continue with IV fluids in light of acute kidney injury. Will continue with normal saline at 125 cc/hr. Vasquez catheter is recommended. The patient is refusing Vasquez at this time. I did advise Nursing to perform bladder scans. If he is unable to void or showing increased residual, then Vasquez definitely will be placed. Initiate SCDs for DVT prevention Will hold on antihypertensives at this time. Cardizem, hydrochlorothiazide and lisinopril will be held. Metformin will be held as his creatinine is greater than 1.5. Additionally, I feel it is prudent to hold Diamox as likely this is contributing to his acute kidney injury. Will hold Invokana. Glyburide will be held secondary to patient's decreased oral intake. Additionally, it is quite reasonable to hold his gemfibrozil and Lipitor as these may be causing some muscle irritation although his CK is not elevated. Will hold Xarelto currently. Continue with flecainide to help with heart rate and rhythm control. Check TSH in light of diabetes and depressive symptoms. Check HgA1c in light of diabetes. Will obtain renal ultrasound secondary to acute kidney injury to exclude obstruction. Recheck CBC in a.m. due to leukocytosis. Will repeat BMP in a.m. secondary to acute kidney injury and IV fluid use. Psychiatry consult will be placed once we are seeing his blood pressure improve. Continue with home CPAP. Discussed code status with patient. He requests NO RESUCITATION. Order is written. Patient's care will be returned to Dr. Womack at time of discharge from [facility]. 02/22 Doing about the same. Did sleep better last night. Still has eye pain. No appetite-forces himself to eat. No nausea or ab pain. Breathing well without SOA or congestion. No chest pain. No f/c. Tired and weak in general. BP improving, but did need IV bolus overnight. Nursing note pt weak, but steady when up. Creatinine decreased to 1.8. Renal US without hydronephrosis. Continue with NS at 125 cc/hr to help VIOLETTE and blood pressure. Continue to hold antihypertensives. Case discussed with Dr Mosquera - left eye pressure measured and normal--okay to hold on Diamox. Will consult psychiatry due to his significant reactive depression. PT/OT to help increase functional status. Start Neurontin 300mg TID to help pain. Will continue Rocephin - not seeing obvious infectious source. Could stop tomorrow if WBC normalized. Hold Glyburide and metformin due to VIOLETTE and decreased oral intake. ISS as needed. Recheck CBC in am due to leukocytosis. Will repeat BMP, Mg, and Phos in am due to VIOLETTE. Condition stabilized - will transfer to medical floor for continuation of care. 02/23 Slow gains. Still with MENDEZ, but slightly decreased. Eating more-reports has eaten more during this hospitalization than in the prior week at home. Appetite still decreased, but no ab pain or nausea. Stools feel slow-passing flatus, but no bowel movement. Breathing well-not feeling SOA or having cough/congestion. No chest pain or palpitations. Not feeling dizzy or unsteady with positional changes. Tolerating therapy-strength improving. Discussed about [facility] for continued psych care-sounds like pt not too keen on [facility] stay. Change IVF to 1/2NS with 20mEq KCl at 100cc/hr. Oral potassium 20mEg x2 today. May d/c Rocephin-no convincing evidence of sepsis/infection. Restart Xarelto, Glyburide, Lipitor and Avodart. Bladder retraining - hope to d/c vasquez tomorrow. Continue PT/OT for strengthening. Discussed case with Eugene (with [facility]) They feel pt appropriate for [facility] treatment, but with pt not seeming to interested more conversation is needed. Continue Neurontin for pain control. Recheck BMP in am due to VIOLETTE. Repeat CBC in am due to resolving leukocytosis. Dr Mosquera did recheck ocular pressures in the afternoon and had increased to 30. Recommends restarting Diamox. As renal status improving, did give 500mg Diamox x1 one and will continue to monitor renal status. 02/24 Doing better. MENDEZ pain still present, but trying to stay on top of discomfort with medications. Starting to have some relief. Feels tolerating pain medications well. Breathing stable-not having increased SOA or congestion. No chest pain or pressure. Eating more. No nausea or ab pain. Reports bowels have been moving. Decrease IVF to 75 cc/hr. D/C Vasquez - monitor for retention. Increase Neurontin to 600mg TID; continue MS and Percocet. MRI of brain/orbit done - no pathology notes. BP improving - will restart Cardizem Will restart Metformin as creatinine improved and sugars with elevation. 500mg Diamox given as ocular pressured had increase yesterday. Recheck BMP in am due to VIOLETTE. Repeat CBC in am due to resolving leukocytosis. 02/25 Doing better this morning-had less eye pain and MENDEZ. Notes pain starting to return. Sitting up in chair with family in room. Reports walked yesterday evening. Had stool this morning. No nausea or ab pain. Appetite improving. Breathing well-not with SOA, cough or congestion. No chest pressure or pain. Urinating well without vasquez. Continue with IVF for renal protection. Restart Diamox 500mg daily - bp and creatinine stable with doses so far. Discussed case with psych. They still have safety concerns in regards to pt's depression. Pt/Family not interested in [facility] at this time - feel mood will improve when MENDEZ resolves. Psychiatry is starting Cymbalta 30mg daily to help target both mood and pain. Will start MS Contin 15mg BID to attempt better pain control. Continue Scheduled Neurontin and prn pain medications. May d/c SCD as Xarelto restarted. Recheck BMP in am due to resolving VIOLETTE and medication use. 02/26 Tired and sleepy today-reports didn't sleep well last night as felt restless. MENDEZ pain decreasing-feels medications doing more for pain. Percocet decreasing the acute flairs of pain he has. No nausea or stomach upset. Appetite varies. Passing stool. Breathing well. No chest pain. No f/c. Decrease IVF to 50cc/hr. Continue Diamox 500mg daily to help decrease ocular pressure. Continue Cardizem and Flecainide for HR control. Lisinopril on hold due to recent VIOLETTE. Decrease MS Contin to 15mg at night due to sleepiness during day - watch for increase in pain. Continue Scheduled Neurontin and Cymbalta along with prn Percocet. Recheck BMP in am due to resolving VIOLETTE and medication use. Medically making gains - hope for discharge soon. Will need psych clearance prior to return home due to his depression. 02/27 Headache better controlled today, tolerating po intake better, d/c IV fluids Continue Diamox 500mg daily to help decrease ocular pressure. Continue Cardizem and Flecainide for HR control. Lisinopril on hold due to recent VIOLETTE. Go back to MS Contin BID 15mg since pt seems to get worse about 12 hours after dose, Continue Scheduled Neurontin and Cymbalta along with prn Percocet. Medically making gains - hope for discharge soon. Will need psych clearance prior to return home due to his depression. 02/28 Headache stable from yesterday, tolerating po intake better Continue Diamox 500mg daily to help decrease ocular pressure. Continue Cardizem and Flecainide for HR control. Lisinopril on hold due to recent VIOLETTE. Monitor on Contin BID 15mg, Continue Scheduled Neurontin and Cymbalta along with prn Percocet. Medically making gains - hope for discharge soon. Will need psych clearance prior to return home due to his depression. 03/01 Unclear how much progress we are making in headache control Continue Diamox 500mg daily to help decrease ocular pressure but optho would like to increase to bid but may worsen acidosis, will discuss with nephro Continue Cardizem and Flecainide for HR control. Lisinopril on hold due to recent VIOLETTE and BPs doing well. Pt believes the MS Contin BID 15mg is helping and is wondering if we can up the dose, will try higher dose, continue Scheduled Neurontin and Cymbalta along with prn Percocet. Will need psych clearance prior to return home due to his depression. 03/02 Apparently headache much better today per pt as we have increased his MS Contin to 30mg BID Increased diamox to 500mg BID as IOP were elevated per optho, added bicarb tablets to help with acidosis 1300mg BID (discussed with with nephro) Continue Cardizem and Flecainide for HR control. Lisinopril on hold due to recent VIOLETTE and BPs doing well. Now on 30mg BID MS Contin, prn percocets, Neurontin and Cymbalta Psych will re-eval tomorrow for possible discharge vs. placement Sepsis Assessment - Evaluation Sepsis screening result: No Definite Risk - Focused Exam Vital Signs Temp Pulse Resp BP Pulse Ox 03/02/17 07:43 95.6 F L 73 18 115/67 97 Hospital Course Summary Disclaimer: The visit summary below is not to be considered part of the above Progress Note.
[2017-03-02] MEDS: OXYCODONE/APAP 7.5 MG/325 MG TABLET PO PRN (12:19)
[2017-03-02] MEDS ORDERED: RIVAROXABAN 20 MG TABLET PO SCH (17:30)
[2017-03-02] MEDS ORDERED: DUTASTERIDE 0.5 MG CAPSULE PO SCH (22:00)
[2017-03-02] MEDS ORDERED: ATORVASTATIN 20 MG TABLET PO SCH (22:00)
[2017-03-02] MEDS ORDERED: LATANOPROST 0.005% EYE DROPS 2.5ml EACH EYE SCH (22:00)
[2017-03-03] MEDS: PrednisoLONE 1% EYE DROPS 5ml LEFT EYE SCH ×2 (06:01→09:15)
[2017-03-03] MEDS: POLYETHYL GLYCOL 3350 17gm PACKET PO SCH (09:15)
[2017-03-03] MEDS: DULOXETINE 30 MG CAPSULE PO SCH (09:15)
[2017-03-03] MEDS: FLECAINIDE 100 MG TABLET PO SCH (09:15)
[2017-03-03] MEDS: METFORMIN 500 MG TABLET PO SCH (09:16)
[2017-03-03] MEDS: SODIUM BICARBONATE 650 MG TABLET PO SCH (09:16)
[2017-03-03] MEDS: GABAPENTIN 600 MG TABLET PO SCH ×2 (09:16→14:19)
[2017-03-03] MEDS: BRIMONIDINE/TIMOLOL 0.2%-0.5% EYE DROPS 5ml LEFT EYE SCH ×2 (09:17→14:21)
[2017-03-03] MEDS: ACYCLOVIR 5% OINT 5gm TP SCH ×3 (09:21→14:21)
[2017-03-03] MEDS: MORPHINE SULFATE 30 MG PO SCH (09:37)
[2017-03-03] MEDS: acetaZOLAMIDE SR 500 MG CAPSULE PO SCH (09:38)
[2017-03-03] MEDS: GLYBURIDE 5 MG TABLET PO SCH (09:38)
[2017-03-03] MEDS: OXYCODONE/APAP 7.5 MG/325 MG TABLET PO PRN (12:11)
[2017-03-03] MEDS ORDERED: PrednisoLONE 1% EYE DROPS 5ml LEFT EYE SCH (13:00)
--- NOTE | 2017-03-03 13:51 | Discharge Summary ---
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 Gao is a 66-year-old gentleman who presents to [facility] Emergency Room secondary to headache, not eating and feeling weak. Things have been rough with him for the past several months. On December 14 of this year he underwent cataract extraction of his left eye. Unfortunately, there was hemorrhage. He was not able to have the intraocular lens implant. He did follow with a retinal specialist and ultimately was able to have his interocular lens placed on February 08 of this year. He notes he has been having significant headaches ever since then. Headache is more in the left frontal area around his eye. He denies increased sinus pressure, drainage, congestion and denies ear fullness, pressure or pain. Nothing is helping his head pain. Tylenol does not help. Initially he was given Tylenol #3 which did not do much. He was then prescribed Percocet which helped pain only minimally but caused a lot of somnolence. He has not been using nonsteroidals as these tend not to help his pain. Over the past two weeks he has been feeling more weak and unsteady. During this time his appetite has been quite diminished. He just does not feel hungry and does not want to eat. Probably a large part of this is depressive symptoms - since he has not regained any vision and is struggling with chronic head pain his mood has been quite deteriorated. He does notice stools are soft but not diarrhea. Denies abdominal pain. He denies shortness of breath, cough, congestion or sputum. He has not had fevers or chills. Denies chest pressure or heaviness. Activities have been quite limited - he just feels too weak and tired to do much. Indeed, when he was seen in clinic today it was quite a struggle for him to get from his car into the office. He presented to emergency room where he was evaluated. Initial blood pressure is quite low at 77/61. White count is elevated at 13.8 with 76% neutrophils. Creatinine shows elevation at 2.8 with BUN 82 - last lab performed at [facility] was from November 2012 with creatinine 1.0. Phosphorus and magnesium were both elevated. CK is not elevated at 53. Lactate is 1.8. His urine does not show evidence of infection and chest x-ray shows no infiltrate. Given his hypotension and leukocytosis, there was concern about severe sepsis. Hospitalist service was notified and patient was subsequently placed in inpatient admission status at [facility] for further evaluation and treatment. Hospital Course Hospital course: Detailed Hospitalization Summary 02/[address] patient in inpatient admission status at [facility] under the care of Dr. Castro. Will initiate CCU monitoring overnight to make sure we are seeing blood pressure improvement. He has received 2 liters of IV fluids (30 mg/kg bolus would be around 3 liters). Blood pressure is already starting to improve. Initial lactate is not excessively elevated but will recheck. Start Rocephin for antimicrobial coverage - source uncertain. Continue with IV fluids in light of acute kidney injury. Will continue with normal saline at 125 cc/hr. Vasquez catheter is recommended. The patient is refusing Vasquez at this time. I did advise Nursing to perform bladder scans. If he is unable to void or showing increased residual, then Vasquez definitely will be placed. Initiate SCDs for DVT prevention Will hold on antihypertensives at this time. Cardizem, hydrochlorothiazide and lisinopril will be held. Metformin will be held as his creatinine is greater than 1.5. Additionally, I feel it is prudent to hold Diamox as likely this is contributing to his acute kidney injury. Will hold Invokana. Glyburide will be held secondary to patient's decreased oral intake. Additionally, it is quite reasonable to hold his gemfibrozil and Lipitor as these may be causing some muscle irritation although his CK is not elevated. Will hold Xarelto currently. Continue with flecainide to help with heart rate and rhythm control. Check TSH in light of diabetes and depressive symptoms. Check HgA1c in light of diabetes. Will obtain renal ultrasound secondary to acute kidney injury to exclude obstruction. Recheck CBC in a.m. due to leukocytosis. Will repeat BMP in a.m. secondary to acute kidney injury and IV fluid use. Psychiatry consult will be placed once we are seeing his blood pressure improve. Continue with home CPAP. Discussed code status with patient. He requests NO RESUCITATION. Order is written. Patient's care will be returned to Dr. Molina at time of discharge from [facility]. 02/22 Doing about the same. Did sleep better last night. Still has eye pain. No appetite-forces himself to eat. No nausea or ab pain. Breathing well without SOA or congestion. No chest pain. No f/c. Tired and weak in general. BP improving, but did need IV bolus overnight. Nursing note pt weak, but steady when up. Creatinine decreased to 1.8. Renal US without hydronephrosis. Continue with NS at 125 cc/hr to help VIOLETTE and blood pressure. Continue to hold antihypertensives. Case discussed with Dr Mosquera - left eye pressure measured and normal--okay to hold on Diamox. Will consult psychiatry due to his significant reactive depression. PT/OT to help increase functional status. Start Neurontin 300mg TID to help pain. Will continue Rocephin - not seeing obvious infectious source. Could stop tomorrow if WBC normalized. Hold Glyburide and metformin due to VIOLETTE and decreased oral intake. ISS as needed. Recheck CBC in am due to leukocytosis. Will repeat BMP, Mg, and Phos in am due to VIOLETTE. Condition stabilized - will transfer to medical floor for continuation of care. 02/23 Slow gains. Still with MENDEZ, but slightly decreased. Eating more-reports has eaten more during this hospitalization than in the prior week at home. Appetite still decreased, but no ab pain or nausea. Stools feel slow-passing flatus, but no bowel movement. Breathing well-not feeling SOA or having cough/congestion. No chest pain or palpitations. Not feeling dizzy or unsteady with positional changes. Tolerating therapy-strength improving. Discussed about [facility] for continued psych care-sounds like pt not too keen on [facility] stay. Change IVF to 1/2NS with 20mEq KCl at 100cc/hr. Oral potassium 20mEg x2 today. May d/c Rocephin-no convincing evidence of sepsis/infection. Restart Xarelto, Glyburide, Lipitor and Avodart. Bladder retraining - hope to d/c vasquez tomorrow. Continue PT/OT for strengthening. Discussed case with Eugene (with [facility]) They feel pt appropriate for [facility] treatment, but with pt not seeming to interested more conversation is needed. Continue Neurontin for pain control. Recheck BMP in am due to VIOLETTE. Repeat CBC in am due to resolving leukocytosis. Dr Mosquera did recheck ocular pressures in the afternoon and had increased to 30. Recommends restarting Diamox. As renal status improving, did give 500mg Diamox x1 one and will continue to monitor renal status. 02/24 Doing better. MENDEZ pain still present, but trying to stay on top of discomfort with medications. Starting to have some relief. Feels tolerating pain medications well. Breathing stable-not having increased SOA or congestion. No chest pain or pressure. Eating more. No nausea or ab pain. Reports bowels have been moving. Decrease IVF to 75 cc/hr. D/C Vasquez - monitor for retention. Increase Neurontin to 600mg TID; continue MS and Percocet. MRI of brain/orbit done - no pathology notes. BP improving - will restart Cardizem Will restart Metformin as creatinine improved and sugars with elevation. 500mg Diamox given as ocular pressured had increase yesterday. Recheck BMP in am due to VIOLETTE. Repeat CBC in am due to resolving leukocytosis. 02/25 Doing better this morning-had less eye pain and MENDEZ. Notes pain starting to return. Sitting up in chair with family in room. Reports walked yesterday evening. Had stool this morning. No nausea or ab pain. Appetite improving. Breathing well-not with SOA, cough or congestion. No chest pressure or pain. Urinating well without vasquez. Continue with IVF for renal protection. Restart Diamox 500mg daily - bp and creatinine stable with doses so far. Discussed case with psych. They still have safety concerns in regards to pt's depression. Pt/Family not interested in [facility] at this time - feel mood will improve when MENDEZ resolves. Psychiatry is starting Cymbalta 30mg daily to help target both mood and pain. Will start MS Contin 15mg BID to attempt better pain control. Continue Scheduled Neurontin and prn pain medications. May d/c SCD as Xarelto restarted. Recheck BMP in am due to resolving VIOLETTE and medication use. 02/26 Tired and sleepy today-reports didn't sleep well last night as felt restless. MENDEZ pain decreasing-feels medications doing more for pain. Percocet decreasing the acute flairs of pain he has. No nausea or stomach upset. Appetite varies. Passing stool. Breathing well. No chest pain. No f/c. Decrease IVF to 50cc/hr. Continue Diamox 500mg daily to help decrease ocular pressure. Continue Cardizem and Flecainide for HR control. Lisinopril on hold due to recent VIOLETTE. Decrease MS Contin to 15mg at night due to sleepiness during day - watch for increase in pain. Continue Scheduled Neurontin and Cymbalta along with prn Percocet. Recheck BMP in am due to resolving VIOLETTE and medication use. Medically making gains - hope for discharge soon. Will need psych clearance prior to return home due to his depression. 02/27 Headache better controlled today, tolerating po intake better, d/c IV fluids Continue Diamox 500mg daily to help decrease ocular pressure. Continue Cardizem and Flecainide for HR control. Lisinopril on hold due to recent VIOLETTE. Go back to MS Contin BID 15mg since pt seems to get worse about 12 hours after dose, Continue Scheduled Neurontin and Cymbalta along with prn Percocet. Medically making gains - hope for discharge soon. Will need psych clearance prior to return home due to his depression. 02/28 Headache stable from yesterday, tolerating po intake better Continue Diamox 500mg daily to help decrease ocular pressure. Continue Cardizem and Flecainide for HR control. Lisinopril on hold due to recent VIOLETTE. Monitor on Contin BID 15mg, Continue Scheduled Neurontin and Cymbalta along with prn Percocet. Medically making gains - hope for discharge soon. Will need psych clearance prior to return home due to his depression. 03/01 Unclear how much progress we are making in headache control Continue Diamox 500mg daily to help decrease ocular pressure but optho would like to increase to bid but may worsen acidosis, will discuss with nephro Continue Cardizem and Flecainide for HR control. Lisinopril on hold due to recent VIOLETTE and BPs doing well. Pt believes the MS Contin BID 15mg is helping and is wondering if we can up the dose, will try higher dose, continue Scheduled Neurontin and Cymbalta along with prn Percocet. Will need psych clearance prior to return home due to his depression. Brief Hospitalization Summary was admitted for severe headaches that he had been having after having complications from cataract surgery. He was tried on different medications and then finally seemed to have some relief with MS Contin 30mg BID with PRN percocet. 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 Also recommended he f/u with neurologist who specializes in headache tx in [place]. Pt also had elevated IOP which opthalmology was very concerned about so his diamox was increased back to 500 BID dosing and bicarb tablets were added to help with acidosis that pt was having with acetazolamide. Bicarb improved while pt was in hospital but noted to pt that this will need close f/u as outpatient. The long LOS in hospital was mostly affected by psych evaluation that pt had suicide ideation. Pt and his weren't very much against voluntary inpatient tx for his depression so psych was considering involuntary admission to inpt psych. It was difficult to assess how much of pt's mood was related to his worsening headaches but as psych continued to assess pt, his headaches did eventually improve and his mood improved as well but psych still had concerns and so they still considered inpt psych admission but pt did not meet requirements for involuntary admission as informed to me by Tra. Since pt was medically stable, plan was made to discharge pt home. Pt had stable BPs while in the hospital while lisinopril was held so it was discontinued at discharge but it may need to be monitored and possibly re-started after assessing alb/cr ratio. Discharge Follow up: PCP apt->Early next week f/u, recommend renal panel to assess acid/base status Ophthalmologyapt-->Early next week to assess IOP Discharge Plan - Med Rec/Dispo Referrals/Follow Up: Tyler Mosquera MD [Physician] - (APPOITMENT WITH DR MOSQUERA [phone] ) Jose Molina MD [Family Provider] - (APPOITMENT WITH DR MOLINA ON 03/10 3:15.) Prescriptions: New Gabapentin [Neurontin] 600 mg PO TID #30 Morphine Sulfate *Sr* [Ms Contin] 30 mg PO BID #14 Sodium Bicarbonate [Sodium Bicarbonate] 1,300 mg PO BID #14 Oxycodone/APAP 7.5/325 [Percocet 7.5/325] 1 tab PO Q4H PRN #10 PRN Reason: Pain Duloxetine [Cymbalta] 30 mg PO DAILY #20 cap Discontinued Lisinopril 10 mg PO DAILY #0 tab No Action Dutasteride [Avodart] 0.5 mg PO DAILY #0 glyBURIDE [Glyburide] 5 mg PO BID #0 tab Canagliflozin [Invokana] 100 mg PO DAILY #0 dilTIAZem HCl [Cartia Xt] 180 mg PO DAILY #0 Rivaroxaban [Xarelto] 20 mg PO DAILY #0 Metformin HCl 500 mg PO BID #0 Latanoprost 1 drop BOTH EYES HS #0 prednisoLONE acetate [Prednisolone Acetate] 1 drop BOTH EYES QID #10 hydroCHLOROthiazide [Hydrochlorothiazide] 25 mg PO DAILY #0 Indomethacin 25 mg PO PRN #0 Gemfibrozil 600 mg PO BID #0 Atorvastatin Calcium [Lipitor] 20 mg PO HS #0 tab Flecainide [Tambocor] 100 mg PO BID #0 tab acetaZOLAMIDE [Acetazolamide] 500 mg PO BID #0 Doxycycline Hyclate 100 mg PO DAILY PRN #0 PRN Reason: ACNE Brimonidine Tartrate/Timolol [Combigan 0.2%-0.5% Eye Drops] 1 drop LEFT EYE TID #0 - Disposition 01 Discharged Home, Self-Care
== END 2017-03-03 15:59 | disposition home or self-care (01) | DRG 683 ==
LOC: MED 16:50
PROVIDERS: ADMIT Internal Medicine; ATTEND Hospitalist

== ENCOUNTER 2017-04-28 14:14 | Observation (INO) ==
[2017-04-28] MEDS ORDERED: SALINE FLUSH 10ml SYRINGE IVF PRN (14:51)
--- NOTE | 2017-04-28 15:09 | Emergency Department Report ---
GI Bleed HPI - General Chief complaint: GI Bleed Stated complaint: bloody stool Time Seen by Provider: 04/28/17 14:22 - History of Present Illness HPI Narrative: Patient is a 66-year-old male with blood in his stool today. He states he was nauseated last night, had a bad Romansh meal, but did not throw up. This morning he did not eat anything, did have a glass of milk. He went to use the bathroom passed a very large bowel movement which had blood on it and then passed blood afterwards. This was a painless experience, he does not have any external hemorrhoids that he knows of. He did have a colonoscopy 6 years ago with no previous history of colon cancer. - Related Data Home Medications Medication Instructions Recorded Confirmed Dutasteride [Avodart] 0.5 mg PO DAILY #0 07/20/10 04/28/17 Indomethacin 25 mg PO PRN #0 08/03/10 04/28/17 Gemfibrozil 600 mg PO BID #0 11/03/12 04/28/17 Atorvastatin Calcium [Lipitor] 20 mg PO HS #0 tab 12/13/16 04/28/17 Flecainide [Tambocor] 100 mg PO BID #0 tab 12/13/16 04/28/17 Rivaroxaban [Xarelto] 20 mg PO DAILY #0 12/13/16 04/28/17 dilTIAZem HCl [Cartia Xt] 180 mg PO DAILY #0 12/13/16 04/28/17 glyBURIDE [Glyburide] 5 mg PO BID #0 tab 12/13/16 04/28/17 Brimonidine Tartrate/Timolol 1 drop LEFT EYE TID #0 02/21/17 04/28/17 [Combigan 0.2%-0.5% Eye Drops] Doxycycline Hyclate 100 mg PO DAILY PRN #0 02/21/17 04/28/17 Latanoprost 1 drop BOTH EYES HS #0 02/21/17 04/28/17 Metformin HCl 500 mg PO BID #0 02/21/17 04/28/17 Sodium Bicarbonate [Sodium 650 mg PO BID 04/28/17 04/28/17 Bicarbonate] Previous Rx's Medication Instructions Recorded Duloxetine [Cymbalta] 30 mg PO DAILY #20 cap 03/03/17 Gabapentin [Neurontin] 600 mg PO TID #30 03/03/17 Morphine Sulfate *Sr* [Ms Contin] 30 mg PO BID #14 03/03/17 Oxycodone/APAP 7.5/325 [Percocet 1 tab PO Q4H PRN #10 03/03/17 7.5/325] acetazolamide ER 500 mg 500 mg PO BID #20 cap 03/21/17 capsule,extended release diclofenac 0.1 % eye drops 1 drop LEFT EYE TID #5 ml 03/30/17 Allergies Allergy/AdvReac Type Severity Reaction Status Date / Time No Known Drug Allergies Allergy Unknown Verified 04/28/17 14:33 Review of Systems All systems: reviewed and negative except as stated PFSH Patient Stated Medical History Cardiac Arrhythmia Yes: Hx of AFib Hypertension Yes Sleep Apnea Yes Diabetes Mellitus Type 2 Yes Other GI Yes: Rectal Bleeding "Hemorrhoids" Hx Benign Prostatic Yes Hyperplasia Clotting Problems Yes: Xarelto Osteoarthritis Yes: Knees Surgical History: Cataract Extraction left eye, 12/16. Retinal Surgery left eye 01/16. IOL implant left eye 02/15 Family History: Family History Father Aneurysm Mother Diabetes - Social History Smoking status: Never smoker Substance use type: does not use Physical Exam - Limitations Limitations: no limitations - General General appearance: alert, in no apparent distress - Normal Exams: Head:: Normocephalic without trauma Eyes:: Pupils are PERRLA w/ EOMI, No scleral icterus, irritation, or foreign bodies noted Fundi:: Disks flat and sharp, No hemorrhages, or AV nicking noted Neck:: Full range of motion, without adenopathy Chest/Respirations:: Clear all jurado, with good airflow, and symmetry bilaterally Cardiovascular:: Regular rate and rhythm, without murmur or gallop, Pulses 2+ all extremities, capillary refill, <2 seconds all extremities Abdomen:: no hepatosplenomegaly, masses or bruits noted Neurological:: Patient is alert, and oriented, cranial nerves, motor/sensory/ cerebellar, exams w/o gross deficits, to observation Psychiatric:: Patient exhibits, appropriate attention, emotion and affect - Abdominal Exam Abdominal exam: Present: hyperactive bowel sounds. Absent: tenderness, guarding , rebound, rigidity Course Vital Signs Temperature 97.9 F 04/28/17 14:20 Pulse Rate 63 04/28/17 14:20 Respiratory Rate 16 04/28/17 14:20 Blood Pressure 127/68 04/28/17 14:20 Pulse Oximetry 98 04/28/17 14:20 Temperature 97.9 F 04/28/17 14:20 Pulse Rate 52 L 04/28/17 15:45 Respiratory Rate 22 04/28/17 15:45 Blood Pressure 110/68 04/28/17 15:45 Pulse Oximetry 96 04/28/17 15:45 GI Bleed - [facility] Narrative Medical decision making narrative: Guaiac positive stool on digital rectal exam. Grossly visible blood on deeper exam. No external hemorrhoids visible. Hemoglobin 12.5. Patient is tired and feels lightheaded. He did have colonoscopy in 2010. When asked about anticoagulants, stated he was not on any, there is Y Rossy that he had restarted his arrival to the last night as he had been out for a week. He does have a history of atrial fibrillation, diabetes both of which increase his risk. This was discussed with general surgery and with hospitalist. Plan is to admit the patient observation with serial H&H and reevaluate in a.m. for stability and possible discharge to follow-up outpatient versus need for endoscopy prior to discharge. - Lab Data Result diagrams: 04/28/17 15:10 04/28/17 15:10 Lab Results 04/28/17 04/28/17 04/28/17 Range/Units 15:10 15:10 15:10 WBC 7.0 (4.5-11.0) T/MM3 RBC 4.36 L (4.50-5.90) M/MM3 Hgb 12.5 L (13.5-17.5) GM/DL Hct 39.6 L (41-53) % MCV 90.8 (80-100) UM3 MCH 28.7 (26-34) UUG MCHC 31.6 (31-37) GM/DL RDW Std Deviation 50.1 (36.9-50.2) FL Plt Count 315 (130-400) T/MM3 MPV 10.2 (9.4-12.4) UM3 Neutrophils % (Manual) 77.0 H (33-66) % Band Neutrophils % 1.0 (0-6) % Lymphocytes % (Manual) 17.0 L (23-45) % Monocytes % (Manual) 2.0 (0-9.0) % Eosinophils % (Manual) 2.0 (0-4) % Basophils % (Manual) 1.0 (0-2) % Neutrophils # (Manual) 5.4 (1.8-7.7) T/MM3 Band Neutrophils # 0.1 T/MM3 Lymphocytes # (Manual) 1.2 (1-4.8) T/MM3 Monocytes # (Manual) 0.1 (0-0.8) T/MM3 Eosinophils # (Manual) 0.1 (0-0.5) T/MM3 Basophils # (Manual) 0.1 (0-0.2) T/MM3 RBC Morph Comment Normal INR 1.34 H (0.99-1.21) APTT 36.2 H (24-36) SEC Turbidity < 20 (0-20) Sodium 143 (134-144) MEQ/L Potassium 3.4 L (3.6-5) MEQ/L Chloride 108 H (98-107) MEQ/L Carbon Dioxide 22 (22-30) MEQ/L Anion Gap 13 (5-15) MEQ/L BUN 46.0 H (9-20) MG/DL Creatinine 1.6 H (0.8-1.5) MG/DL GFR Calculation 43 BUN/Creatinine Ratio 29 H (6-26) RATIO Glucose 163 H (75-110) MG/DL Calculated Osmolality 291 H (261-280) MOSM/KG Calcium 10.2 (8.4-10.2) MG/DL Total Bilirubin 0.70 (0.20-1.30) MG/DL Icterus Index < 2 (0-7) AST 20 (17-59) U/L ALT 24 (21-72) U/L Alkaline Phosphatase 98 (38-126) U/L Total Protein 7.2 (6.3-8.2) G/DL Albumin 4.6 (3.5-5.0) G/DL Globulin 2.6 (2.4-3.6) G/DL Albumin/Globulin Ratio 1.8 (1.1-2.2) RATIO Specimen Hemolysis < 15 (0-25) Blood Type Antibody Screen 04/28/17 Range/Units 15:10 WBC (4.5-11.0) T/MM3 RBC (4.50-5.90) M/MM3 Hgb (13.5-17.5) GM/DL Hct (41-53) % MCV (80-100) UM3 MCH (26-34) UUG MCHC (31-37) GM/DL RDW Std Deviation (36.9-50.2) FL Plt Count (130-400) T/MM3 MPV (9.4-12.4) UM3 Neutrophils % (Manual) (33-66) % Band Neutrophils % (0-6) % Lymphocytes % (Manual) (23-45) % Monocytes % (Manual) (0-9.0) % Eosinophils % (Manual) (0-4) % Basophils % (Manual) (0-2) % Neutrophils # (Manual) (1.8-7.7) T/MM3 Band Neutrophils # T/MM3 Lymphocytes # (Manual) (1-4.8) T/MM3 Monocytes # (Manual) (0-0.8) T/MM3 Eosinophils # (Manual) (0-0.5) T/MM3 Basophils # (Manual) (0-0.2) T/MM3 RBC Morph Comment INR (0.99-1.21) APTT (24-36) SEC Turbidity (0-20) Sodium (134-144) MEQ/L Potassium (3.6-5) MEQ/L Chloride (98-107) MEQ/L Carbon Dioxide (22-30) MEQ/L Anion Gap (5-15) MEQ/L BUN (9-20) MG/DL Creatinine (0.8-1.5) MG/DL GFR Calculation BUN/Creatinine Ratio (6-26) RATIO Glucose (75-110) MG/DL Calculated Osmolality (261-280) MOSM/KG Calcium (8.4-10.2) MG/DL Total Bilirubin (0.20-1.30) MG/DL Icterus Index (0-7) AST (17-59) U/L ALT (21-72) U/L Alkaline Phosphatase (38-126) U/L Total Protein (6.3-8.2) G/DL Albumin (3.5-5.0) G/DL Globulin (2.4-3.6) G/DL Albumin/Globulin Ratio (1.1-2.2) RATIO Specimen Hemolysis (0-25) Blood Type A Positive Antibody Screen Negative Disposition Clinical Impression: Melena Disposition: To OBS [facility] [place] Condition: Stable Prescriptions: No Action Dutasteride [Avodart] 0.5 mg PO DAILY #0 glyBURIDE [Glyburide] 5 mg PO BID #0 tab dilTIAZem HCl [Cartia Xt] 180 mg PO DAILY #0 Rivaroxaban [Xarelto] 20 mg PO DAILY #0 Metformin HCl 500 mg PO BID #0 Latanoprost 1 drop BOTH EYES HS #0 Gabapentin [Neurontin] 600 mg PO TID #30 Morphine Sulfate *Sr* [Ms Contin] 30 mg PO BID #14 Indomethacin 25 mg PO PRN #0 Gemfibrozil 600 mg PO BID #0 Atorvastatin Calcium [Lipitor] 20 mg PO HS #0 tab Flecainide [Tambocor] 100 mg PO BID #0 tab Doxycycline Hyclate 100 mg PO DAILY PRN #0 PRN Reason: ACNE Brimonidine Tartrate/Timolol [Combigan 0.2%-0.5% Eye Drops] 1 drop LEFT EYE TID #0 Oxycodone/APAP 7.5/325 [Percocet 7.5/325] 1 tab PO Q4H PRN #10 PRN Reason: Pain Duloxetine [Cymbalta] 30 mg PO DAILY #20 cap Sodium Bicarbonate [Sodium Bicarbonate] 650 mg PO BID diclofenac 0.1 % eye drops 1 drop LEFT EYE TID #5 ml acetazolamide ER 500 mg capsule,extended release 500 mg PO BID #20 cap Time of Disposition: 17:45 - Seen By: physician
--- NOTE | 2017-04-28 15:14 | XRay Report ---
INDICATION: gi bleed PROCEDURE: CHEST 2-VIEWS UPRIGHT (PA & LAT) Encounter: Initial COMPARISON: February 22, 2017 FINDINGS: The lungs are clear without evidence of focal abnormal airspace opacity. There is no pleural effusion or pneumothorax. The heart size, mediastinal contours and pulmonary vascularity are within normal limits. DISH of the thoracic spine. IMPRESSION: No acute cardiopulmonary disease. .
--- NOTE | 2017-04-28 17:43 | History & Physical Report ---
<Mali Solo V - Last Filed: 04/28/17 17:35> History of Present Illness Date: 04/28/17 Chief complaint: GI bleeding HPI: Patient is a pleasant 66-year-old male who presented to the emergency room today for evaluation of acute blood in stool. Patient reports that he is chronically on the role toe for chronic anticoagulation. He had ran out and had been off of it 1 week. He restarted it yesterday. He went to dinner last evening and ate [place] food. Following dinner he felt like he did not feel well with nausea and some abdominal discomfort. Last evening he did pass a small amount of bloody stool. Today he passed a 2nd large bloody stool. This was concerning. Thus, he presented to the emergency room for further evaluation. Laboratory studies were obtained. WBC count 7.0, hemoglobin 12.5, hematocrit 39.6, platelet count 315. INR 1.34, PTT 36.2. Sodium is 143, potassium BUN 46, creatinine 1.6, glucose 163. LFTs normal. Chest x-ray showed no acute cardiopulmonary findings. Given patient's bloody stools, accompanied with chronic anticoagulation. The hospitalist services were contacted and accepted patient for outpatient admission for further evaluation and treatment. It is expected that his stay will be less than 2 overnights. Delmer is alert, oriented and pleasant. His is at the bedside. They're able to give accurate history. He has chronically been on Xarelto for several years and this has been managed under the care of Dr. Littlejohn for chronic atrial fibrillation. He reports that he ran out of Xarelto one week ago. He was waiting for his scheduled appointment with Dr. Womack yesterday. So patient went without Xarelto for approximately 1 week. He started back on it yesterday. Patient also reports he has had ongoing significant eye pain with multiple eye procedures under the care of Dr. Mosquera. He has been using extended-release morphine as well as Percocet for breakthrough pain. He has stopped the to wean himself off of this. He was weaned down to 15 milligrams of morphine daily. He and stopped it on Thursday 04/26. Reports having no other recent illnesses or injuries. He has no history of GI bleeding. He attributed his discomfort and stools to possible food poisoning last evening. We did discuss advanced directives and he does verify he wishes to be a do not resuscitate Review of Systems Comprehensive ROS: completed and no additional positive findings except those as stated Review of systems: Denies entire review of systems at time of admission - Gastrointestinal Gastrointestinal: Present: as per HPI, change in stool character Gastrointestinal Comments: Nicanor blood in stools [facility] Patient Stated Medical History Type 2 diabetes mellitus. Chronic atrial fibrillation. Coagulopathy with Xarelto. Hypertension. Dyslipidemia. MANNIE - addressed with CPAP. Stage II chronic kidney disease. BPH. Osteoarthritis. Erectile dysfunction. Cataract extraction 11/2016. Intraocular lens implant 02/08/2017. Surgical History: Cataract Extraction left eye, 12/16. Retinal Surgery left eye 01/16. 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 Medications Home Medications Medication Instructions Recorded Confirmed Type Dutasteride [Avodart] 0.5 mg PO DAILY #0 07/20/10 04/28/17 History Indomethacin 25 mg PO PRN #0 08/03/10 04/28/17 History Gemfibrozil 600 mg PO BID #0 11/03/12 04/28/17 History Atorvastatin Calcium [Lipitor] 20 mg PO HS #0 tab 12/13/16 04/28/17 History Flecainide [Tambocor] 100 mg PO BID #0 tab 12/13/16 04/28/17 History Rivaroxaban [Xarelto] 20 mg PO DAILY #0 12/13/16 04/28/17 History dilTIAZem HCl [Cartia Xt] 180 mg PO DAILY #0 12/13/16 04/28/17 History glyBURIDE [Glyburide] 5 mg PO BID #0 tab 12/13/16 04/28/17 History Brimonidine Tartrate/Timolol 1 drop LEFT EYE TID #0 02/21/17 04/28/17 History [Combigan 0.2%-0.5% Eye Drops] Doxycycline Hyclate 100 mg PO DAILY PRN #0 02/21/17 04/28/17 History Latanoprost 1 drop BOTH EYES HS #0 02/21/17 04/28/17 History Metformin HCl 500 mg PO BID #0 02/21/17 04/28/17 History Sodium Bicarbonate [Sodium 650 mg PO BID 04/28/17 04/28/17 History Bicarbonate] Allergies Allergy/AdvReac Type Severity Reaction Status Date / Time No Known Drug Allergies Allergy Unknown Verified 04/28/17 19:05 Exam Vital Signs: Temperature 97.9 F 04/28/17 14:20 Pulse Rate 52 L 04/28/17 15:45 Respiratory Rate 22 04/28/17 15:45 Blood Pressure 110/68 04/28/17 15:45 Pulse Oximetry 96 04/28/17 15:45 Oxygen Delivery Method Room Air Height: 1.93 m Weight: 92.4 kg - Constitutional Present: no acute distress, well nourished, well developed - Routine HEENT Exam Eye: Present: EOMI ENT: Present: mucous membranes moist, dentition normal - Routine Respiratory Exam Present: CTA bilaterally. Absent: wheezes - Routine Cardiovascular Exam Present: RRR, S1, S2. Absent: murmur - Routine Abdominal Exam Present: soft, normoactive bowel sounds, non distended, non tender. Absent: tenderness - Routine Extremities Exam Present: full ROM, normal capillary refill - Routine Back/Spine/Pelvis Exam Back/Spine: Present: full ROM - Routine Skin Exam Present: intact, dry, warm - Routine Neurological Exam Present: alert, oriented X3, CN II-XII intact - Routine Psychiatric Exam Present: normal thought process Comments: Flat affect Results - Labs CBC & Chem 7: 04/28/17 15:10 04/28/17 15:10 Assessment and Plan (1) GI bleeding Current visit: Yes Status: Acute DVT Prophylaxis: SCD's GI Prophylaxis: Protonix Resuscitation Status: Do Not Resuscitate Assessment and Plan: Impression Acute GI bleed Chronic anticoagulation on Xarelto Hypokalemia Anemia Hypertension diabetes Hypercholesterolemia. Chronic atrial fibrillation. Cataracts Retinal and lens implant surgery Plan Will admit patient to outpatient observation under care of Dr. Carolina for acute GI bleed, on chronic anticoagulation. Effect etiology of his stools is unknown. It is likely multifactorial as patient started back on Xarelto yesterday. He also ate a meal in which she feels may have caused him to feel sick could be a hemorrhagic colitis. Protonix 40 milligrams IV twice a day for GI protection We will continue to monitor carefully for ongoing bleeding. Will obtain a GI panel to rule out infectious etiology. Stop Xarelto. Will likely need to discuss with Dr. Littlejohn and Dr. Womack at time of discharge. Given chronic anticoagulation for atrial fibrillation. Will also hold indomethacin as this can be irritating to the GI tract. Continue to utilize oxycodone as needed for pain. Patient has been able to wean off MS Contin over the past 48 hours. Will recheck H&H at 1900 today. If any further bleeding persists, we'll need to type and screen. Hgb on admission is stable at 12.5 Will monitor Accu-Cheks routinely SCDs to bilateral lower extremity for DVT prophylaxis Patient does request to be a do not resuscitate and this orders written. Will discuss further orders and plan of care with attending, Dr. Triana. At time of discharge medical care will return to primary care provider, Dr. Womack Sepsis Assessment - Evaluation Sepsis screening result: No Definite Risk Hospital Course Summary Disclaimer: The visit summary below is not to be considered part of the above Progress Note. Hospital Course: 04/28/17 - admission Impression Acute GI bleed Chronic anticoagulation on Xarelto Hypokalemia Anemia Hypertension diabetes Hypercholesterolemia. Chronic atrial fibrillation. Cataracts Retinal and lens implant surgery Plan Will admit patient to outpatient observation under care of Dr. Carolina for acute GI bleed, on chronic anticoagulation. Effect etiology of his stools is unknown. It is likely multifactorial as patient started back on Xarelto yesterday. He also ate a meal in which she feels may have caused him to feel sick could be a hemorrhagic colitis. Protonix 40 milligrams IV twice a day for GI protection We will continue to monitor carefully for ongoing bleeding. Will obtain a GI panel to rule out infectious etiology. Stop Xarelto. Will likely need to discuss with Dr. Littlejohn and Dr. Womack at time of discharge. Given chronic anticoagulation for atrial fibrillation. Will also hold indomethacin as this can be irritating to the GI tract. Continue to utilize oxycodone as needed for pain. Patient has been able to wean off MS Contin over the past 48 hours. Will recheck H&H at 1900 today. If any further bleeding persists, we'll need to type and screen. Hgb on admission is stable at 12.5 Will monitor Accu-Cheks routinely SCDs to bilateral lower extremity for DVT prophylaxis Patient does request to be a do not resuscitate and this orders written. Will discuss further orders and plan of care with attending, Dr. Triana. At time of discharge medical care will return to primary care provider, Dr. Womack <Harleen Carolina - Last Filed: 04/28/17 19:45> History of Present Illness Date: 04/28/17 [facility] Patient Stated Medical History Cataracts Yes Cardiac Arrhythmia Yes: Hx of AFib Hypertension Yes Sleep Apnea Yes Diabetes Mellitus Type 2 Yes Gastrointestinal Bleeding Yes Other GI Yes: Rectal Bleeding "Hemorrhoids" Hx Benign Prostatic Yes Hyperplasia Clotting Problems Yes: Xarelto Osteoarthritis Yes: Knees Family History: Family History Father Aneurysm Mother Diabetes Exam Vital Signs: Temperature 96.0 F L 04/28/17 18:12 Pulse Rate 50 L 04/28/17 18:12 Respiratory Rate 14 04/28/17 18:12 Blood Pressure 121/69 04/28/17 18:12 Pulse Oximetry 98 04/28/17 18:12 Oxygen Delivery Method Room Air Height: 1.93 m Weight: 93.4 kg Results - Labs CBC & Chem 7: 04/28/17 15:10 04/28/17 15:10 Assessment and Plan (1) GI bleeding Current visit: Yes Status: Acute Assessment and Plan: I have independently evaluated and examined this patient. I reviewed the chart, the patient's history, and the DERRICK MAN/PA's documented findings as above. We discussed and formulated the assessment and plan as above with additions as below: Mr. Gao was seen with his at bedside. He is chronically anticoagulated with Xarelto which was temporarily interrupted as previously noted. He resume medication yesterday. First episode of rectal bleeding occurred yesterday evening followed by a larger bloody stool today. Maroon stool was reported on digital examination in the ER. The patient last underwent colonoscopy by Dr. Magana in March 2011 at which time an adenomatous polyp was removed and a few scattered diverticuli described. Additionally external hemorrhoids were reported. The patient denies any abdominal pain and at time of exam seems fairly unconcerned about the bleeding he experienced. He denies lightheadedness , chest pain, palpitations, or dyspnea. Patient is hemodynamically stable with a heart rate of 50 and blood pressure 121 /69. Respirations are nonlabored. Abdomen is soft, bowel sounds are diminished but are present. There is no tenderness on palpation throughout the abdomen and no guarding. Probable lower GI bleed-diverticular versus infectious. Given absence of multiple diarrheal stools I suspect the former. Serial hemoglobins, hold Xarelto, clear liquids. Repeat colonoscopy in the near future. Patient's is his alternate decision maker and DO NOT RESUSCITATE was confirmed with patient/. Hospital Course Summary Disclaimer: The visit summary below is not to be considered part of the above Progress Note.
[2017-04-28] MEDS ORDERED: OXYCODONE/APAP 7.5 MG/325 MG TABLET PO PRN (17:48)
[2017-04-28 18:15] VITALS: O2SAT 98
[2017-04-28 18:16] VITALS: BMI 25.0
[2017-04-28] MEDS: NS 1,000 ML IV SCH (19:27)
[2017-04-28] MEDS: PANTOPRAZOLE 40 MG INJECTION IVP SCH (20:52)
[2017-04-28] MEDS: FLECAINIDE 100 MG TABLET PO SCH (20:55)
[2017-04-28] MEDS: SODIUM BICARBONATE 650 MG TABLET PO SCH (20:55)
[2017-04-28] MEDS: GABAPENTIN 600 MG TABLET PO SCH (20:55)
[2017-04-28] MEDS: BRIMONIDINE/TIMOLOL 0.2%-0.5% EYE DROPS 5ml LEFT EYE SCH (20:56)
[2017-04-28] MEDS: EYE LEFT EYE SCH (20:56)
[2017-04-28] MEDS: LIDOCAINE 1% 2ml INJ 10 MG, POTASSIUM CHLORIDE INJ 10 MEQ in NS 100 ML IV SCH ×3 (20:56→23:12)
[2017-04-28] MEDS: DICLOFENAC 0.1% LEFT EYE SCH (20:56)
[2017-04-28] MEDS ORDERED: METFORMIN 500 MG TABLET PO SCH (21:00)
[2017-04-28] MEDS ORDERED: GLYBURIDE 5 MG TABLET PO SCH (21:00)
[2017-04-28] MEDS ORDERED: GEMFIBROZIL 600 MG TABLET PO SCH (21:00)
[2017-04-28] MEDS ORDERED: LATANOPROST 0.005% EYE DROPS 2.5ml OP SCH (22:00)
[2017-04-28] MEDS ORDERED: ATORVASTATIN 20 MG TABLET PO SCH (22:00)
[2017-04-29] MEDS: LIDOCAINE 1% 2ml INJ 10 MG, POTASSIUM CHLORIDE INJ 10 MEQ in NS 100 ML IV SCH (00:23)
[2017-04-29] MEDS: NS 1,000 ML IV SCH ×2 (02:56→10:08)
[2017-04-29] MEDS ORDERED: GEMFIBROZIL 600 MG TABLET PO SCH (07:30)
[2017-04-29 08:00] VITALS: BP 113/69; RESP 16; TEMP 95.6
[2017-04-29] MEDS ORDERED: GLYBURIDE 5 MG TABLET PO SCH (08:00)
[2017-04-29] MEDS ORDERED: METFORMIN 500 MG TABLET PO SCH (08:00)
[2017-04-29 08:39] VITALS: PULSE 52
[2017-04-29] MEDS ORDERED: DULOXETINE 30 MG CAPSULE PO SCH (09:00)
[2017-04-29] MEDS ORDERED: DUTASTERIDE 0.5 MG CAPSULE PO SCH (09:00)
[2017-04-29] MEDS: PANTOPRAZOLE 40 MG INJECTION IVP SCH (09:54)
[2017-04-29] MEDS: BRIMONIDINE/TIMOLOL 0.2%-0.5% EYE DROPS 5ml LEFT EYE SCH (10:15)
[2017-04-29] MEDS: GABAPENTIN 600 MG TABLET PO SCH (10:16)
[2017-04-29] MEDS: SODIUM BICARBONATE 650 MG TABLET PO SCH (10:17)
[2017-04-29] MEDS: FLECAINIDE 100 MG TABLET PO SCH (10:17)
--- NOTE | 2017-04-29 10:19 | Progress Note ---
<Georgiana Scott - Last Filed: 04/29/17 10:15> Subjective: CV - Dr. Littlejohn Resting in bed, awake, no complaints. No acute distress. at bedside. RN also at bedside reconciling medications. Objective Vital signs: Temperature 95.6 F L 04/29/17 07:59 Pulse Rate 52 L 04/29/17 08:00 Respiratory Rate 16 04/29/17 07:59 Blood Pressure 113/69 04/29/17 07:59 Pulse Oximetry 98 04/29/17 07:59 Oxygen Delivery Method Room Air Rhythm: Sinus Bradycardia Weight: 92.9 kg - Constitutional Present: no acute distress - Routine HEENT Exam Eye: Absent: conjunctival icterus - Routine Respiratory Exam Comments: No distress; no hypoxia - Routine Cardiovascular Exam Present: S1, S2 Comments: bradycardic - Routine Abdominal Exam Present: non distended - Routine Extremities Exam Present: no edema, pulses intact - Routine Musculoskeletal Exam Musculoskeletal: Present: no clubbing or cyanosis - Routine Skin Exam Present: intact, dry, warm - Routine Neurological Exam Present: alert - Routine Psychiatric Exam Present: normal affect. Absent: normal thought process (delayed) Results - Labs CBC & Chem 7: 04/29/17 04:17 04/29/17 04:17 Assessment and Plan (1) GI bleeding Status: Acute DVT Prophylaxis: SCD's GI Prophylaxis: Protonix Resuscitation Status: Do Not Resuscitate Assessment and Plan: Impression Acute GI bleed Chronic anticoagulation on Xarelto (a-fib) Hypokalemia Anemia Hypertension diabetes Hypercholesterolemia. Chronic atrial fibrillation. Cataracts Retinal and lens implant surgery Last colonoscopy was in March, Plan Will discuss anticoagulation options with Dr. Littlejohn - Pradaxa may be more appropriate given reversal agent Continue Protonix hgb remains relatively stable continue to hold indomethacin Hypokalemia resolved continue clear liquids will discuss with CM - poss dc tomorrow if remains stable Sepsis Assessment - Evaluation Sepsis screening result: No Definite Risk Hospital Course Summary Disclaimer: The visit summary below is not to be considered part of the above Progress Note. Hospital Course: 04/28/17 - admission Impression Acute GI bleed Chronic anticoagulation on Xarelto Hypokalemia Anemia Hypertension diabetes Hypercholesterolemia. Chronic atrial fibrillation. Cataracts Retinal and lens implant surgery Plan Will admit patient to outpatient observation under care of Dr. Carolina for acute GI bleed, on chronic anticoagulation. Effect etiology of his stools is unknown. It is likely multifactorial as patient started back on Xarelto yesterday. He also ate a meal in which she feels may have caused him to feel sick could be a hemorrhagic colitis. Protonix 40 milligrams IV twice a day for GI protection We will continue to monitor carefully for ongoing bleeding. Will obtain a GI panel to rule out infectious etiology. Stop Xarelto. Will likely need to discuss with Dr. Littlejohn and Dr. Womack at time of discharge. Given chronic anticoagulation for atrial fibrillation. Will also hold indomethacin as this can be irritating to the GI tract. Continue to utilize oxycodone as needed for pain. Patient has been able to wean off MS Contin over the past 48 hours. Will recheck H&H at 1900 today. If any further bleeding persists, we'll need to type and screen. Hgb on admission is stable at 12.5 Will monitor Accu-Cheks routinely SCDs to bilateral lower extremity for DVT prophylaxis Patient does request to be a do not resuscitate and this orders written. Will discuss further orders and plan of care with attending, Dr. Triana. At time of discharge medical care will return to primary care provider, Dr. Womack <Cortes Gonzalez - Last Filed: 04/29/17 18:00> Subjective: Above pt was seen & examined with Georgiana earlier today; agree with above plan of care. Pt H.H remained stable. Dr Florence was called to advise on pt management. The question was if he considered Pradaxa due to the existence of Prabind. Dr Florence advised to hold anti-coagulation for now, and to have pt undergo scopes. Then once the source is identified and corrected DOAC can be resumed. PE has been entered. Plan 1) D/C home off DOAC and OFF Indomethacin 2) PT should F/U With PCP soon and have EGD - Colonoscopy and if needed capsule endoscopy. Objective Vital signs: Temperature 95.6 F L 04/29/17 07:59 Pulse Rate 52 L 04/29/17 08:00 Respiratory Rate 16 04/29/17 07:59 Blood Pressure 113/69 04/29/17 07:59 Pulse Oximetry 98 04/29/17 07:59 Oxygen Delivery Method Room Air Results - Labs CBC & Chem 7: 04/29/17 11:49 04/29/17 04:17 Assessment and Plan (1) GI bleeding Status: Acute Hospital Course Summary Disclaimer: The visit summary below is not to be considered part of the above Progress Note. Addendum entered and electronically signed by Georgiana Scott APRN 04/29/17 10: 53: I spoke with Dr. Littlejohn, who knows this patient well. He recommends stopping Xarelto x 2 weeks, then resuming while being monitored by Dr. Womack (who has been following). He does not recommend Pradaxa because of the following reasons : 1. It has a much longer 1/2 life than Xarelto, and Xarelto is essentially out of the system in a few hours, plus the reversal agent is very expensive 2. Pradaxa is more associated with GI bleed compared to other anticoagulants. Further, he agrees with outpatient endoscopy.
[2017-04-29] MEDS: DICLOFENAC 0.1% LEFT EYE SCH (10:22)
[2017-04-29] MEDS: EYE LEFT EYE SCH (10:22)
[2017-04-29] MEDS ORDERED: acetaZOLAMIDE SR 500 MG CAPSULE PO SCH (10:31)
--- NOTE | 2017-04-29 13:32 | Discharge Summary ---
<Georgiana Scott - Last Filed: 04/29/17 13:27> Discharge Information Date of admission: 04/28/17 17:53 Attending Physician: Harleen Carolina MD Primary care physician: Jose Womack MD Consults: 04/28/17 18:59 Dietary Consult [CONS] Routine Comment: Reason For Exam: [facility] Consult [CONS] Routine - Discharge Diagnosis (1) GI bleeding Status: Acute - Laboratory Labs: 04/29/17 11:49 04/29/17 04:17 - Radiology Radiology: Type of Exam(s): XR chest 2V PROCEDURE: CHEST 2-VIEWS UPRIGHT (PA & LAT) FINDINGS: The lungs are clear without evidence of focal abnormal airspace opacity. There is no pleural effusion or pneumothorax. The heart size, mediastinal contours and pulmonary vascularity are within normal limits. DISH of the thoracic spine. IMPRESSION: No acute cardiopulmonary disease. History of Present Illness HPI: Patient is a pleasant 66-year-old male who presented to the emergency room today for evaluation of acute blood in stool. Patient reports that he is chronically on Xarelto for chronic anticoagulation. He had ran out and had been off of it 1 week. He restarted it yesterday. He went to dinner last evening and ate Spanish food. Following dinner he felt like he did not feel well with nausea and some abdominal discomfort. Last evening he did pass a small amount of bloody stool. Today he passed a 2nd large bloody stools. This was concerning. Thus, he presented to the emergency room for further evaluation. Laboratory studies were obtained. WBC count 7.0, hemoglobin 12.5, hematocrit 39.6, platelet count 315. INR 1.34, PTT 36.2. Sodium is 143, potassium BUN 46, creatinine 1.6, glucose 163. LFTs normal. Chest x-ray showed no acute cardiopulmonary findings. Given patient's bloody stools, accompanied with chronic anticoagulation, the hospitalist services were contacted and accepted patient for outpatient admission for further evaluation and treatment. It is expected that his stay will be less than 2 overnights. Delmer is alert, oriented and pleasant. His is at the bedside. They're able to give accurate history. He has chronically been on Xarelto for several years and this has been managed under the care of Dr. Littlejohn for chronic atrial fibrillation. He reports that he ran out of Xarelto one week ago. He was waiting for his scheduled appointment with Dr. Womack yesterday. So patient went without Xarelto for approximately 1 week. He started back on it yesterday. Patient also reports he has had ongoing significant eye pain with multiple eye procedures under the care of Dr. Mosquera. He has been using extended-release morphine as well as Percocet for breakthrough pain. He has stopped the to wean himself off of this. He was weaned down to 15 milligrams of morphine daily. He and stopped it on Thursday 04/26. Reports having no other recent illnesses or injuries. He has no history of GI bleeding. He attributed his discomfort and stools to possible food poisoning last evening. We did discuss advanced directives and he does verify he wishes to be a do not resuscitate Objective Vital signs: Temperature 95.6 F L 04/29/17 07:59 Pulse Rate 52 L 04/29/17 08:00 Respiratory Rate 16 04/29/17 07:59 Blood Pressure 113/69 04/29/17 07:59 Pulse Oximetry 98 04/29/17 07:59 Oxygen Delivery Method Room Air Rhythm: Sinus Bradycardia Weight: 92.9 kg Hospital Course This is a general summary of the patient's hospital course. For more details refer to the complete medical record. Hospital course: Mr. Gao was admitted to observation status on 04/28/17 after seeing bloody stools at home. Stools in the ED was heme positive. His hemoglobin was followed , and remained relatively stable. It was 12.5 on admission, and at time of discharge it was 11.0. He did not have any active bleeding during his hospital course. Xarelto was discontinued. Indomethacin was also discontinued. 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 His preference is to hold Xarelto for 2 weeks, and may resume at that time with close monitoring by primary care physician, Dr. Womack. However, this patient will need close outpatient follow -up and bidirectional endoscopies in the very near future prior to resumption of anticoagulation. Recommend follow-up with Dr. Womack early next week. I left a message on Dr. Womack' phone for discharge f/u. Assessment Acute GI bleed Chronic atrial fibrillation, anticoagulation - Xarelto Hypokalemia Anemia Hypertension diabetes Hypercholesterolemia. Plan: Temporarily discontinue Xarelto for 2 weeks. Stop indomethacin. Follow-up with Dr. Womack as soon as possible to have H&H rechecked and to schedule bidirectional endoscopy. Follow-up with Dr. Littlejohn. Time spent with patient: discharge greater than 30 minutes GI Prophylaxis: Protonix Discharge Plan - Med Rec/Dispo Referrals/Follow Up: Jose Womack MD [Family Provider] - 1 Week Virgilio Littlejohn MD [Physician] - 1 Month Lanre Instructions: Gastrointestinal Bleeding (DC), Colonoscopy (GEN), Rectal Bleeding (DC) Additional Instructions: Temporarily discontinue Xarelto for 2 weeks. Stop indomethacin. have labs rechecked on 05/01/17. Inquire about scheduling scopes before restarting Xarelto. Prescriptions: New Pantoprazole Sodium [Protonix] 1 tab PO ACB #30 tab Continue Dutasteride [Avodart] 0.5 mg PO DAILY #0 glyBURIDE [Glyburide] 5 mg PO BID #0 tab dilTIAZem HCl [Cartia Xt] 180 mg PO DAILY #0 Metformin HCl 500 mg PO BID #0 Latanoprost 1 drop BOTH EYES HS #0 Gabapentin [Neurontin] 600 mg PO TID #30 Gemfibrozil 600 mg PO BID #0 Atorvastatin Calcium [Lipitor] 20 mg PO HS #0 tab Flecainide [Tambocor] 100 mg PO BID #0 tab Doxycycline Hyclate 100 mg PO DAILY PRN #0 PRN Reason: ACNE Brimonidine Tartrate/Timolol [Combigan 0.2%-0.5% Eye Drops] 1 drop LEFT EYE TID #0 Oxycodone/APAP 7.5/325 [Percocet 7.5/325] 1 tab PO Q4H PRN #10 PRN Reason: Pain Duloxetine [Cymbalta] 30 mg PO DAILY #20 cap Sodium Bicarbonate [Sodium Bicarbonate] 650 mg PO BID diclofenac 0.1 % eye drops 1 drop LEFT EYE TID #5 ml acetazolamide ER 500 mg capsule,extended release 500 mg PO BID #20 cap Discontinued Rivaroxaban [Xarelto] 20 mg PO DAILY #0 Morphine Sulfate *Sr* [Ms Contin] 30 mg PO BID #14 Indomethacin 25 mg PO PRN #0 Discharge Instructions/Outpatient Orders: [facility] - [facility] - [facility] Time Frame: 2 Days, Location: Determined By Patient - Disposition 01 Discharged Home, Self-Care <Cortes Gonzalez - Last Filed: 04/29/17 17:56> Discharge Information Date of admission: 04/28/17 17:53 Attending Physician: Harleen Carolina MD Primary care physician: Jose Womack MD Consults: 04/28/17 18:59 Dietary Consult [CONS] Routine Comment: Reason For Exam: [facility] Consult [CONS] Routine - Discharge Diagnosis (1) GI bleeding Status: Acute - Laboratory Labs: 04/29/17 11:49 04/29/17 04:17 Objective Vital signs: Temperature 95.6 F L 04/29/17 07:59 Pulse Rate 52 L 04/29/17 08:00 Respiratory Rate 16 04/29/17 07:59 Blood Pressure 113/69 04/29/17 07:59 Pulse Oximetry 98 04/29/17 07:59 Oxygen Delivery Method Room Air - Constitutional Present: no acute distress, well nourished - Routine HEENT Exam Head: Present: normocephalic, atraumatic Eye: Present: EOMI, PERRL - Routine Respiratory Exam Present: CTA bilaterally - Routine Cardiovascular Exam Present: RRR, S1, S2 - Routine Abdominal Exam Present: soft, non distended, non tender - Routine Extremities Exam Absent: cyanosis, clubbing, edema - Routine Skin Exam Present: intact - Routine Neurological Exam Present: alert, oriented X3 - Routine Psychiatric Exam Present: normal affect, good insight, good judgment Hospital Course This is a general summary of the patient's hospital course. For more details refer to the complete medical record.
== END 2017-04-29 14:40 | disposition home health service (06) ==
LOC: ED 14:14 → MED 14:14
PROVIDERS: ADMIT Internal Medicine; ATTEND Internal Medicine

== ENCOUNTER 2017-05-01 10:02 | Inpatient (IN) ==
[2017-05-01] MEDS ORDERED: SALINE FLUSH 10ml SYRINGE IVF PRN (10:06)
[2017-05-01] MEDS ORDERED: DEXTROSE 50% SYRINGE 50ml (1 AMP) IVP ONE (10:06)
[2017-05-01] MEDS ORDERED: D5LR 1,000 ML IV SCH (10:15)
--- NOTE | 2017-05-01 10:24 | Emergency Department Report ---
General Adult HPI - General Chief complaint: Medical Emergency Stated complaint: LBP Time Seen by Provider: 05/01/17 10:10 Source: patient, family, EMS, old records reviewed Mode of arrival: EMS - History of Present Illness HPI narrative: Patient is a 66-year-old male, read presents to the emergency department for evaluation of low blood sugar. Patient was originally brought to the emergency room in the wee hours the morning for altered level of consciousness found to have blood sugars at 22. Patient was stabilized over the course of several hours in the emergency Department blood sugars remained stable in the 80s so patient was discharged home, told to drink to Glucerna shakes or eat a very large meal when he got home. Patient did need her of this, only took 1 or 2 bites of food, and drank approximately three quarters of a Glucerna shake. Patient became altered again EMS was called blood sugar of 31. Patient was given 1 amp of D50 transported to the emergency department for evaluation. Just before arrival patient had blood glucose checks 63, recheck 57. One amp of D50 given on arrival - Related Data Home Medications Medication Instructions Recorded Confirmed Dutasteride [Avodart] 0.5 mg PO DAILY #0 07/20/10 05/01/17 Gemfibrozil 600 mg PO BID #0 11/03/12 05/01/17 Atorvastatin Calcium [Lipitor] 20 mg PO HS #0 tab 12/13/16 05/01/17 Flecainide [Tambocor] 100 mg PO BID #0 tab 12/13/16 05/01/17 dilTIAZem HCl [Cartia Xt] 180 mg PO DAILY #0 12/13/16 05/01/17 glyBURIDE [Glyburide] 5 mg PO BID #0 tab 12/13/16 05/01/17 Brimonidine Tartrate/Timolol 1 drop LEFT EYE TID #0 02/21/17 05/01/17 [Combigan 0.2%-0.5% Eye Drops] Doxycycline Hyclate 100 mg PO DAILY PRN #0 02/21/17 05/01/17 Latanoprost 1 drop BOTH EYES HS #0 02/21/17 05/01/17 Metformin HCl 500 mg PO BID #0 02/21/17 05/01/17 Sodium Bicarbonate [Sodium 650 mg PO BID 04/28/17 05/01/17 Bicarbonate] Previous Rx's Medication Instructions Recorded Duloxetine [Cymbalta] 30 mg PO DAILY #20 cap 03/03/17 Gabapentin [Neurontin] 600 mg PO TID #30 03/03/17 Oxycodone/APAP 7.5/325 [Percocet 1 tab PO Q4H PRN #10 03/03/17 7.5/325] acetazolamide ER 500 mg 500 mg PO BID #20 cap 03/21/17 capsule,extended release diclofenac 0.1 % eye drops 1 drop LEFT EYE TID #5 ml 03/30/17 Pantoprazole Sodium [Protonix] 1 tab PO ACB #30 tab 04/29/17 Allergies Allergy/AdvReac Type Severity Reaction Status Date / Time No Known Drug Allergies Allergy Unknown Verified 04/28/17 19:05 Review of Systems Constitutional: Reports: weakness. Denies: chills ENT: Denies: throat pain, dental pain Cardiovascular: Denies: chest pain, palpitations Respiratory: Denies: cough, dyspnea Gastrointestinal: Denies: abdominal pain, nausea, vomiting Neurological: Reports: weakness. Denies: headache, numbness Psychiatric: Denies: anxiety, depression Endocrine: Denies: fatigue Hematological/Lymphatic: Denies: easy bleeding PFSH Patient Stated Medical History Cataracts Yes Cardiac Arrhythmia Yes: Hx of AFib Hypertension Yes Sleep Apnea Yes Diabetes Mellitus Type 2 Yes Gastrointestinal Bleeding Yes Other GI Yes: Rectal Bleeding "Hemorrhoids" Hx Benign Prostatic Yes Hyperplasia Clotting Problems Yes: Xarelto Osteoarthritis Yes: Knees Surgical History: Cataract Extraction left eye, 12/16. Retinal Surgery left eye 01/16. IOL implant left eye 02/15 Family History: Family History Father Aneurysm Mother Diabetes - Social History Smoking status: Never smoker Physical Exam - General General appearance: alert, in no apparent distress - ENT ENT exam: Present: normal oropharynx, mucous membranes moist - Neck Neck exam: Present: full ROM, trachea midline - Chest Chest inspection: Present: normal inspection, symmetric chest wall rise. Absent : tenderness - Respiratory Respiratory exam: Present: normal lung sounds bilaterally. Absent: respiratory distress, wheezes, stridor - Cardiovascular Cardiovascular exam: Present: normal rhythm, normal heart sounds - Abdominal Exam Abdominal exam: Present: soft. Absent: distention - Extremities Exam Extremities exam: Present: full ROM - Back Exam Back exam: Present: full ROM - Skin Skin exam: Present: warm, dry - Neurological Exam Neurological exam: Present: alert, oriented X3 - Psychiatric Psychiatric exam: Present: normal affect, normal mood Course Vital Signs Temperature 98.1 F 05/01/17 10:05 Pulse Rate 54 L 05/01/17 10:05 Respiratory Rate 16 05/01/17 10:05 Blood Pressure 118/71 05/01/17 10:05 Pulse Oximetry 100 05/01/17 10:05 Temperature 98.1 F 05/01/17 10:05 Pulse Rate 54 L 05/01/17 10:05 Respiratory Rate 16 05/01/17 10:05 Blood Pressure 118/71 05/01/17 10:05 Pulse Oximetry 100 05/01/17 10:05 Medical Decision Making - MDM Narrative Medical decision making narrative: Discuss case with Dr. Gonzalez, hospitalist service, start D10, admit patient to the CCU hourly blood glucose checks, random cortisol level - Differential Diagnosis hypoglycemia - Lab Data Lab Results 05/01/17 Range/Units 10:11 Glucometer 59 (65-110) mg/dL Disposition Clinical Impression: Hypoglycemia Disposition: 02 To [facility] Acute Care Condition: Stable Prescriptions: No Action Dutasteride [Avodart] 0.5 mg PO DAILY #0 glyBURIDE [Glyburide] 5 mg PO BID #0 tab dilTIAZem HCl [Cartia Xt] 180 mg PO DAILY #0 Metformin HCl 500 mg PO BID #0 Latanoprost 1 drop BOTH EYES HS #0 Gabapentin [Neurontin] 600 mg PO TID #30 Pantoprazole Sodium [Protonix] 1 tab PO ACB #30 tab Gemfibrozil 600 mg PO BID #0 Atorvastatin Calcium [Lipitor] 20 mg PO HS #0 tab Flecainide [Tambocor] 100 mg PO BID #0 tab Doxycycline Hyclate 100 mg PO DAILY PRN #0 PRN Reason: ACNE Brimonidine Tartrate/Timolol [Combigan 0.2%-0.5% Eye Drops] 1 drop LEFT EYE TID #0 Oxycodone/APAP 7.5/325 [Percocet 7.5/325] 1 tab PO Q4H PRN #10 PRN Reason: Pain Duloxetine [Cymbalta] 30 mg PO DAILY #20 cap Sodium Bicarbonate [Sodium Bicarbonate] 650 mg PO BID diclofenac 0.1 % eye drops 1 drop LEFT EYE TID #5 ml acetazolamide ER 500 mg capsule,extended release 500 mg PO BID #20 cap Referrals: Jose Womack MD [Family Provider] - Time of Disposition: 10:24 - Seen By: physician
[2017-05-01] MEDS: D10W 1,000 ML IV SCH ×2 (10:32→20:53)
--- NOTE | 2017-05-01 12:03 | History & Physical Report ---
<Georgiana Scott D - Last Filed: 05/01/17 14:20> History of Present Illness Date: 05/01/17 Chief complaint: glossy-eyed HPI: Mr Gao is being readmitted for symptomatic hypoglycemia. He was admitted over the weekend for GI bleed with stable anemia, and his Xarelto was placed on hold x 2 weeks. His states that while the bleeding has stopped, he still has loose frequent stools that are malodorous. She reports that last night he had a BGM of 41. He was just sitting there, staring, glassy eyed. He was incontinent of urine and stool. She was able to get him to drink Glucerna x2 cans, and then with great difficulty, was able to help him walk out to the car and drove him to the hospital. In the ED he received an amp of D50 plus ate some peanut butter and crackers and drank a coke, and became briefly hyperglycemic. He was discharged home with BGM of 82 and his was instructed to have him eat a big meal, drink a Glucerna, and hold oral diabetes meds today. However, when they got home she couldn't get him out of the car and and was not very responsive. He couldn't eat the [employer] meal that she had just purchased. She rechecked his blood sugar, and it was 39. She then called 911, and when EMS came out it was down to 31. EMS gave an amp of D50 and took him back to [facility], where he received another amp of D50. He was then admitted to the CCU. Positive ROS: Poor oral intake for "months" with weight loss. He weighed 240 lbs in July, and now is 204 lbs. He's lost 10-15 lbs in the last 2 months. At a recent office visit with Dr. Womack, they discussed discontinuing diabetic medications, but decided to continue for now. Since he's lost so much weight he's developed 2 decubitus ulcers, which they have been using A&D or Neosporin + NuSkin to treat at home with good improvement. Also notes some choking, typically on beef. This occurs every 2-3 months but his states it' s been occurring more frequently. He states if the bite of meat doesn't go down with milk he self-induces vomiting. Had brief headache on Monday and took a rare Percocet. He used to take MS Contin for eye pain/headache, but this was discontinued a few weeks ago. (He had been on MS Contin since March after a left eye lens implant). His vision is improving and headaches have subsided. Review of Systems - Constitutional Constitutional: Present: as per HPI, anorexia, headache(s), weight loss. Absent : fever(s) - EENMT Eyes: Present: as per HPI Mouth/Throat: Present: changes in swallowing (food (often beef) becomes caught in his esophagus every 2-3 months. Sometimes it goes down with milk but sometimes he has to induce vomiting.) - Cardiovascular Cardiovascular: Absent: chest pain Vascular: Absent: pedal edema - Respiratory Respiratory: Absent: cough, dyspnea - Gastrointestinal Gastrointestinal: Present: as per HPI, diarrhea, melena. Absent: abdominal pain - Genitourinary Genitourinary: Absent: urinary hesitancy - Musculoskeletal Musculoskeletal: Absent: joint swelling - Integumentary/Breasts Integumentary: Present: as per HPI - Neurological Neurological: Present: confusion, weakness. Absent: abnormal gait - Psychiatric Psychiatric: Absent: depression - Hematologic/Lymphatic Hematologic/Lymphatic: Present: as per HPI, easy bleeding - Allergic/Immunologic Allergic/Immunologic: Absent: tongue swelling PFSH GI bleed - 04/28/17 (Xarelto held) Atrial fibrillation s/p cardioversion - now in sinus HTN dyslipidemia Type 2 DM CKD stage II MANNIE - on CPAP BPH ED OA - b/l knees Surgical History: Cataract Extraction left eye, 12/16. Retinal Surgery left eye 01/16. IOL implant left eye 02/15. Cardioversion for A-fib. Colonoscopy 2010. B/L knee arthroscopies Family History: Father - of abdominal aneurysm (was a lifelong smoker) Mother - had DM and cancer (possible breast), alcoholism 1/2 sister - healthy Doesn't know mother's side of the family. Longevity in paternal side. 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 Womack CV - Dr. Littlejohn Ophtho - Dr. Sanchez and Dr. Mosquera Medications Home Medications Medication Instructions Recorded Confirmed Type Dutasteride [Avodart] 0.5 mg PO DAILY #0 07/20/10 05/01/17 History Gemfibrozil 600 mg PO BID #0 11/03/12 05/01/17 History Atorvastatin Calcium [Lipitor] 20 mg PO HS #0 tab 12/13/16 05/01/17 History Flecainide [Tambocor] 100 mg PO BID #0 tab 12/13/16 05/01/17 History dilTIAZem HCl [Cartia Xt] 180 mg PO DAILY #0 12/13/16 05/01/17 History glyBURIDE [Glyburide] 5 mg PO BID #0 tab 12/13/16 05/01/17 History Brimonidine Tartrate/Timolol 1 drop LEFT EYE TID #0 02/21/17 05/01/17 History [Combigan 0.2%-0.5% Eye Drops] Doxycycline Hyclate 100 mg PO DAILY PRN #0 02/21/17 05/01/17 History Latanoprost 1 drop BOTH EYES HS #0 02/21/17 05/01/17 History Metformin HCl 500 mg PO BID #0 02/21/17 05/01/17 History Sodium Bicarbonate [Sodium 650 mg PO BID 04/28/17 05/01/17 History Bicarbonate] Allergies Allergy/AdvReac Type Severity Reaction Status Date / Time No Known Drug Allergies Allergy Unknown Verified 05/01/17 10:37 Exam Vital Signs: Temperature 98.1 F 05/01/17 10:05 Pulse Rate 55 L 05/01/17 11:39 Respiratory Rate 52 H 05/01/17 11:15 Blood Pressure 122/63 05/01/17 11:15 Pulse Oximetry 98 05/01/17 11:15 Oxygen Delivery Method Room Air Telemetry Rhythm: Sinus Bradycardia Height: 1.93 m Weight: 92.8 kg Body Mass Index: 24.9 - Constitutional Present: no acute distress, thin - Routine HEENT Exam Eye: Present: scleral injection (left eye). Absent: PERRL (left pupil abnormal - recent sx) ENT: Present: mucous membranes moist, oropharynx clear, dentition normal - Routine Neck Exam Present: supple. Absent: lymphadenopathy, tenderness, swelling - Routine Respiratory Exam Present: CTA bilaterally - Routine Cardiovascular Exam Present: RRR, S1, S2 - Routine Abdominal Exam Present: soft, normoactive bowel sounds, non distended, non tender Comments: scaphoid abdomen - Routine Extremities Exam Present: no edema, pulses intact, normal capillary refill - Routine Back/Spine/Pelvis Exam Back/Spine: Absent: muscle spasm, erythema - Routine Skin Exam Present: intact, dry, warm Comments: 2 open coccygeal pressure ulcers - Routine Neurological Exam Present: alert, oriented X3, CN II-XII intact initially was slow to respond - during evaluation he was found to be hypoglycemic again and an extra amp of D50 was administered. Shortly after this , he was participatory in conversation. - Routine Psychiatric Exam Present: normal affect, normal thought process Assessment and Plan (1) Hypoglycemia Current visit: Yes Status: Acute DVT Prophylaxis: SCD's GI Prophylaxis: Protonix Resuscitation Status: Do Not Resuscitate Assessment and Plan: Assessment Persistent and severe hypoglycemia Acute metabolic encephalopathy secondary to above Hypokalemia, POA Hyperosmotic hypernatremia, POA Very recent GI bleed, improved/resolved, stable, off Xarelto Normocytic anemia Coccygeal pressure ulcers, POA Type 2 DM, last A1c 7.9% (Jan, 2017) - not on insulin Chronic A-fib, s/p cardioversion and currently in sinus HTN HLD MANNIE - uses CPAP CKD stage II BPH Plan Hypoglycemia, persistent - despite oral efforts and multiple doses of IV D50, he has ongoing hypoglycemia -IV dextrose started -monitor BGM every 30-60 minutes until it stabilizes -HOLD metformin and glyburide -serum cortisol ordered -A1c in March, was 6.8%; repeated on 02/22/17 and it increased to 7.9% -consider endocrinology consultation, especially in the context hypoglycemia while on diabetic agents and because of potential hyperthyroidism Electrolyte abnormalities -Hypokalemia - KDur ordered -check mag level -Hyperosmotic hypernatremia - mild; IVF; reassess in am. Anorexia and weight loss -of note TSH was low (0.26) in Jan, 2017. Hyperthyroidism may cause emotional lability (recently admitted with suicidal ideation), weight loss (endorses a 36 lb weight loss since July,), and hyperdefecation. -repeat TSH and free T3/T4 now. Coccygeal pressure ulcers -consult wound team for recommendations -albumin level was 4.6 -check prealbumin -Consult dietitian since he has had anorexia, weight loss, and skin breakdown Recent GI bleed; hyperdefecation -hgb actually improved from 11 on 04/29/17 to 13 today (though could be hemoconcentration with GI losses) -check for occult blood -assess iron panel, vitamin B12, folate -continue to hold Xarelto -will still need to schedule outpatient b/l endoscopy (Dr. Magana did his last colonoscopy in 2010) -check GI panel Chronic a-fib, dx in 2009 and s/p cardioversion -continue flecainide & diltiazem -monitor telemetry - currently in sinus will -registry rn is Dr. Eron CHIANGX -SCDs as anticoagulants are contraindicated d/t very recent GI bleed -Protonix d/t GI bleed Code status - DNR. Has not legally named as DPOA, but she is supposed to be first to contact. PCP - Dr. Womack. - Time spent with patient greater than 35 minutes Sepsis Assessment - Evaluation Sepsis screening result: No Definite Risk Hospital Course Summary Disclaimer: The visit summary below is not to be considered part of the above Progress Note. <Cortes Gonzalez - Last Filed: 05/01/17 19:07> History of Present Illness Date: 05/01/17 [facility] Patient Stated Medical History Migraine Yes: following lens implant Cataracts Yes Cardiac Arrhythmia Yes: Hx of AFib Hypertension Yes Sleep Apnea Yes Diabetes Mellitus Type 2 Yes Gastrointestinal Bleeding Yes Other GI Yes: Rectal Bleeding "Hemorrhoids" Hx Benign Prostatic Yes Hyperplasia Clotting Problems Yes: Xarelto Osteoarthritis Yes: Knees Family History: Family History Father Aneurysm Mother Diabetes Exam Vital Signs: Temperature 98.6 F 05/01/17 16:00 Pulse Rate 68 05/01/17 16:01 Respiratory Rate 18 05/01/17 16:00 Blood Pressure 105/55 05/01/17 16:01 Pulse Oximetry 100 05/01/17 16:01 Oxygen Delivery Method Room Air Height: 6 ft 4 in Weight: 92.8 kg Results - Labs CBC & Chem 7: 05/01/17 16:31 05/01/17 16:31 Assessment and Plan (1) Hypoglycemia Current visit: Yes Status: Acute Assessment and Plan: As above pt was seen and examined. He has been having episodes of low BS, no clear description of a seizure and no evident brain damage - but BS has been low enough to cause a seizure. Pt oral intake has been very poor for a while and overall condition has been deteriorating gradually. As mentioned before, his diabetic meds were going to be D/C but where not. DIAGNOSIS 1) Type II DM on treatment with Glyburide and Metformin, now presenting with persistent episodes of hypoglycemia; no seizures seen but pt had mental status changes (was obtuned when one BS was in the low 20's) This is most likely due to combination of factors including poor oral intake and taking glyburide. - Stop glyburide, and hold metformin for now. - Since pt has been loosing weight, to a point he appears to be malnourished if any medication is used for hyperglycemia it should be insulin (Anabolic properties). - Random Cortisol ordered - Will start IV steroids. - A1c in March, was 6.8%; repeated on 02/22/17 and it increased to 7.9% - again if any should be on Insulin, and probably gastroparesis would need to be excluded. - Will check a C-Peptide for completion but insulinomas are rare (this is most likely a drug effect). - Continue D10W + Add solucortef - once BS is sustaining above 150 - will wean off IV glucose and may consider (If needed) a very low sliding scale. 2) Electrolyte abnormalities - Hypokalemia, hypomagnesemia -> Correct Mg with 2gm IV now + Give 2 doses of KCL (PO). - Minimal hypernatremia on admission is now improved (Due to free water in D10W) 3) Anorexia and weight loss, which has been worsening for months. - Probably multifactorial. - TFT's suggest pt has sick euthyroid syndrome but will re-evaluate as needed. - Will check rT3. - KUB shows a very dilated stomach. Probably increased stool burden but will wait for final reading (Could be impacted). 4) Chronic a-fib, dx in 2009 and s/p cardioversion - Continue flecainide & diltiazem - Rate controlled - LOW - Can not anticoagulate due to recent GI bleed. 5) Recent GI bleed; now with ? of diarrhea. - KUB done - very dilated stomach ? of impaction - Pt on PO narcotics - will stop - add Miralax. - Agree that hemoglobin correction is due to hemoconcentration. - May need to have scopes as inpatient depending on his symptoms. 6) Wound care - Coccygeal pressure ulcers - Consult wound team for recommendation Hospital Course Summary Disclaimer: The visit summary below is not to be considered part of the above Progress Note.
[2017-05-01] MEDS ORDERED: DEXTROSE 50% INJECTION 50ml VIAL IV ONE (12:10)
[2017-05-01] MEDS ORDERED: PNEUMOCOCCAL 13 VACCINE 0.5ml INJECTION IM ONE (12:29)
[2017-05-01] MEDS ORDERED: OXYCODONE/APAP 7.5 MG/325 MG TABLET PO PRN (14:34)
[2017-05-01] MEDS ORDERED: GABAPENTIN 600 MG TABLET PO SCH (15:00)
[2017-05-01] MEDS: BRIMONIDINE/TIMOLOL 0.2%-0.5% EYE DROPS 5ml LEFT EYE SCH ×2 (16:12→21:43)
[2017-05-01] MEDS: SODIUM BICARBONATE 650 MG TABLET PO SCH ×2 (16:15→21:47)
[2017-05-01] MEDS: EYE LEFT EYE SCH ×2 (16:17→21:46)
[2017-05-01] MEDS: DICLOFENAC 0.1% LEFT EYE SCH ×2 (16:17→21:46)
[2017-05-01] MEDS: GEMFIBROZIL 600 MG TABLET PO SCH (17:06)
[2017-05-01] MEDS ORDERED: POLYETHYL. GLYCOL 3350 BOTTLE 238 GM PO SCH (19:15)
[2017-05-01] MEDS: HYDROCORTISONE SOD SUCC 100mg/2ml INJECTION IVP SCH (20:33)
[2017-05-01] MEDS: POTASSIUM CHLORIDE 20 MEQ/15 ML ORAL LIQUID PO SCH (20:34)
[2017-05-01] MEDS: MAGNESIUM SULFATE 1gm PREMIX 1 GM/100 ML BAG IV SCH ×2 (20:35→21:41)
[2017-05-01] MEDS ORDERED: SODIUM BICARBONATE 650 MG TABLET PO SCH (21:00)
[2017-05-01] MEDS: acetaZOLAMIDE SR 500 MG CAPSULE PO SCH (21:47)
[2017-05-01] MEDS: FLECAINIDE 100 MG TABLET PO SCH (21:48)
[2017-05-01] MEDS: ATORVASTATIN 20 MG TABLET PO SCH (22:51)
[2017-05-01] MEDS: LATANOPROST 0.005% EYE DROPS 2.5ml LEFT EYE SCH (22:52)
[2017-05-02] MEDS: D10W 1,000 ML IV SCH (03:14)
[2017-05-02] MEDS: HYDROCORTISONE SOD SUCC 100mg/2ml INJECTION IVP SCH ×2 (03:25→09:46)
[2017-05-02] MEDS ORDERED: D5W 1,000 ML IV SCH (05:30)
[2017-05-02] MEDS: PANTOPRAZOLE 20 MG TABLET PO SCH (06:49)
--- NOTE | 2017-05-02 08:04 | Wound Care Progress Note ---
Wound Management - Patient Status Premedicated Prior to Dressing Change: No - Wound Left Posterior Buttock Wound Type: Pressure Injury Wound Present on Admission?: Yes Wound Staging: Stage III Length: 1 Width: 1.5 Depth: 0.1 Wound Bed Appearance: Yellow, Slough Amy Wound Appearance: Bright Red Tunneling: No Undermining: No Drainage Description: Serous Drainage Amount: Scant Drainage Odor: No Odor Dressing Status: Changed Primary Dressing: Foam Dressing Dressing Change Date: 05/02/17 Dressing Change Time: 08:03 Dressing Change Patient Tolerance: Tolerated Well Right Posterior Buttock Wound Type: Pressure Injury Wound Present on Admission?: Yes Wound Staging: Stage II Length: 1 Width: 0.3 Depth: 0.4 Wound Bed Appearance: [place] Amy Wound Appearance: Bright Red Tunneling: No Undermining: No Drainage Description: Sanguineous Drainage Amount: Scant Drainage Odor: No Odor Dressing Status: Open to Air
--- NOTE | 2017-05-02 08:16 | XRay Report ---
Indication: R/O Impaction with secondary diarrhea PROCEDURE: XR KUB: Encounter: Initial Comparison: April 22, 2008 Findings: The visualized lung bases are clear. There is no free air on the upright view. The bowel gas pattern is nonobstructive and nonspecific. Gas is seen in nondilated small and large bowel to the level of the rectum. Mild stool is seen in the right colon. Severe degenerative change in the right hip. Impression: Nonobstructive nonspecific bowel gas pattern. No evidence for a fecal impaction. .
[2017-05-02] MEDS: GEMFIBROZIL 600 MG TABLET PO SCH ×2 (08:29→16:47)
[2017-05-02] MEDS: POTASSIUM CHLORIDE 20 MEQ/15 ML ORAL LIQUID PO SCH ×2 (08:30→16:48)
[2017-05-02] MEDS: acetaZOLAMIDE SR 500 MG CAPSULE PO SCH (09:42)
[2017-05-02] MEDS: SODIUM BICARBONATE 650 MG TABLET PO SCH ×2 (09:42→21:06)
[2017-05-02] MEDS: DULOXETINE 30 MG CAPSULE PO SCH (09:42)
[2017-05-02] MEDS: FLECAINIDE 100 MG TABLET PO SCH ×2 (09:42→21:06)
[2017-05-02] MEDS: DUTASTERIDE 0.5 MG CAPSULE PO SCH (09:42)
[2017-05-02] MEDS: BRIMONIDINE/TIMOLOL 0.2%-0.5% EYE DROPS 5ml LEFT EYE SCH ×3 (09:43→21:05)
[2017-05-02] MEDS: EYE LEFT EYE SCH ×3 (09:44→22:24)
[2017-05-02] MEDS: DICLOFENAC 0.1% LEFT EYE SCH ×3 (09:44→22:24)
[2017-05-02] MEDS: POLYETHYL GLYCOL 3350 17gm PACKET PO SCH (09:44)
[2017-05-02] MEDS: D5W IV SCH (11:03)
[2017-05-02] MEDS: SODIUM ACETATE IV SCH (11:03)
--- NOTE | 2017-05-02 11:09 | Progress Note ---
Subjective: Delmer is doing better today. No more episodes of hypoglycemia - was placed on steroids last night to prevent these. Most likely due to Glyburide, however C- Peptide was sent out. He states he is feeling better today. Objective Vital signs: Temperature 98.1 F 05/02/17 08:00 Pulse Rate 61 05/02/17 10:00 Respiratory Rate 35 H 05/02/17 10:00 Blood Pressure 124/87 05/02/17 10:00 Pulse Oximetry 98 05/02/17 10:00 Oxygen Delivery Method Room Air Rhythm: Normal Sinus Rhythm Body Mass Index: 24.9 - Constitutional Present: no acute distress, well nourished, well developed - Routine HEENT Exam Head: Present: normocephalic, atraumatic Eye: Present: EOMI, PERRL - Routine Respiratory Exam Present: CTA bilaterally - Routine Cardiovascular Exam Present: RRR, S1, S2 - Routine Abdominal Exam Present: soft, non distended, non tender - Routine Extremities Exam Absent: cyanosis, clubbing, edema - Routine Skin Exam Present: intact - Routine Neurological Exam Present: alert, oriented X3, CN II-XII intact - Routine Psychiatric Exam Present: normal affect, cooperative, good insight, good judgment Results - Labs CBC & Chem 7: 05/02/17 03:37 05/02/17 03:37 Assessment and Plan (1) Hypoglycemia Current visit: Yes Status: Acute Assessment and Plan: SUMMARY - Pt was admitted yesterday after several episodes of hypoglycemia (BS in the low 30's. BS in the low 20's) no clear description of a seizure and no evident brain damage, but he had signs of neuroglycopenia - was confused and obtunded. Pt oral intake has been very poor for a while and overall condition has been deteriorating gradually. As mentioned before, his diabetic meds were going to be D/C but where not. His oral intake dropped but he did not stop his Glyburide or metformin. DIAGNOSIS 1) Type II DM on treatment with Glyburide and Metformin; came to the ED with persistent episodes of hypoglycemia; no seizures seen but pt had mental status changes (was obtuned when one BS was in the low 20's) This is most likely due to combination of factors including poor oral intake and taking glyburide. - D/C glyburide and D/C Metformin. - Since pt has been loosing weight, to a point he appears to be malnourished if any medication is used for hyperglycemia it should be insulin (Anabolic properties). - Random Cortisol was 21 (NORMAL). Steroids given to protect from hypoglycemia. - Will check a C-Peptide for completion but insulinomas are rare (this is most likely a drug effect). - A1c in March, was 6.8%; repeated on 02/22/17 and it increased to 7.9% - again if any should be on Insulin, and probably gastroparesis would need to be excluded. - Solucortef 50mg IV Q6H -> decrease to Q8H. 2) Electrolyte abnormalities a) Metabolic acidosis - probably in part due to high doses of Acetazolamide for Glaucoma - Will have to decrease Diamox for now and give IV drip of Na Lactate - to increase bicarbonate. b)Hypokalemia - Improved K is 3.5 today. c) Hypomagnesemia - Will recheck level. d) Minimal hypernatremia on admission is now improved. 3) Anorexia and weight loss, which has been worsening for months. - Probably multifactorial. - TFT's suggest pt has sick euthyroid syndrome but will re-evaluate as needed. - Will check rT3. - KUB shows a dilated stomach - no impaction. 4) Chronic a-fib, dx in 2009 and s/p cardioversion - Continue flecainide & diltiazem - Rate controlled - LOW - Can not anticoagulate due to recent GI bleed. 5) Recent GI bleed; now with ? of diarrhea. - Pt on PO narcotics -> Stopped + added Miralax. (05/01) - Agree that hemoglobin correction could be due to hemoconcentration. - May need to have scopes as inpatient depending on his symptoms. 6) Wound care - Coccygeal pressure ulcers - Consult wound team for recommendation Sepsis Assessment - Evaluation Sepsis screening result: No Definite Risk Hospital Course Summary Disclaimer: The visit summary below is not to be considered part of the above Progress Note.
[2017-05-02 15:46] VITALS: BMI 27.8
[2017-05-02] MEDS ORDERED: HYDROCORTISONE SOD SUCC 100mg/2ml INJECTION IVP SCH (17:00)
[2017-05-02] MEDS: acetaZOLAMIDE 250 MG TABLET PO SCH (21:05)
[2017-05-02] MEDS: ATORVASTATIN 20 MG TABLET PO SCH (21:06)
[2017-05-02] MEDS: LATANOPROST 0.005% EYE DROPS 2.5ml LEFT EYE SCH (23:07)
[2017-05-03] MEDS: D5W IV SCH ×2 (01:21→15:20)
[2017-05-03] MEDS: SODIUM ACETATE IV SCH ×2 (01:21→15:20)
[2017-05-03] MEDS: PANTOPRAZOLE 20 MG TABLET PO SCH (06:02)
[2017-05-03] MEDS: SODIUM BICARBONATE 650 MG TABLET PO SCH ×2 (09:32→20:51)
[2017-05-03] MEDS: acetaZOLAMIDE 250 MG TABLET PO SCH ×2 (09:32→20:52)
[2017-05-03] MEDS: DUTASTERIDE 0.5 MG CAPSULE PO SCH (09:32)
[2017-05-03] MEDS: FLECAINIDE 100 MG TABLET PO SCH ×2 (09:32→20:52)
[2017-05-03] MEDS: DULOXETINE 30 MG CAPSULE PO SCH (09:32)
[2017-05-03] MEDS: POLYETHYL GLYCOL 3350 17gm PACKET PO SCH (09:33)
[2017-05-03] MEDS: EYE LEFT EYE SCH ×3 (09:33→20:54)
[2017-05-03] MEDS: GEMFIBROZIL 600 MG TABLET PO SCH ×2 (09:33→16:51)
[2017-05-03] MEDS: BRIMONIDINE/TIMOLOL 0.2%-0.5% EYE DROPS 5ml LEFT EYE SCH ×3 (09:33→20:54)
[2017-05-03] MEDS: DICLOFENAC 0.1% LEFT EYE SCH ×3 (09:33→20:54)
--- NOTE | 2017-05-03 09:59 | Progress Note ---
Subjective: Pt is doing much improved today, his BS has been for the most part normal with a level on the 70's last night. He is eating well and feels well also. Objective Vital signs: Temperature 98.6 F 05/03/17 04:00 Pulse Rate 47 L 05/03/17 07:00 Respiratory Rate 30 H 05/03/17 07:00 Blood Pressure 133/60 05/03/17 06:01 Pulse Oximetry 95 05/03/17 07:00 Oxygen Delivery Method Room Air Rhythm: Normal Sinus Rhythm Height: 6 ft 4 in Weight: 103.8 kg Body Mass Index: 27.8 - Constitutional Present: no acute distress, well nourished, well developed - Routine HEENT Exam Head: Present: normocephalic, atraumatic Eye: Present: EOMI, PERRL - Routine Cardiovascular Exam Present: RRR, S1, S2 - Routine Abdominal Exam Present: soft, non distended, non tender - Routine Extremities Exam Absent: cyanosis, clubbing, edema - Routine Neurological Exam Present: alert, oriented X3 - Routine Psychiatric Exam Present: normal affect, cooperative, good insight, good judgment Results - Labs CBC & Chem 7: 05/03/17 04:29 05/03/17 16:16 Assessment and Plan (1) Hypoglycemia Current visit: Yes Status: Acute Assessment and Plan: SUMMARY - Pt was admitted yesterday after several episodes of hypoglycemia (BS in the low 30's. BS in the low 20's) no clear description of a seizure and no evident brain damage, but he had signs of neuroglycopenia - was confused and obtunded. Pt oral intake has been very poor for a while and overall condition has been deteriorating gradually. As mentioned before, his diabetic medications were going to be D/C by his PCP, but were not. His oral intake dropped significantly prior to admission, but he did not stop his Glyburide or metformin. DIAGNOSIS 1) Type II DM on treatment with Glyburide and Metformin; came to the ED with persistent episodes of hypoglycemia; no seizures seen but pt had mental status changes (was obtuned when one BS was in the low 20's), was reportedly very fatigued as well. This is most likely due to combination of factors including poor oral intake and taking glyburide. - D/C glyburide and D/C Metformin. - Since pt has been loosing weight, to a point he appears to be malnourished if any medication is used for hyperglycemia it should be insulin (Anabolic properties). - Random Cortisol was 21 (NORMAL). Steroids given to protect from hypoglycemia, now stopped. - Will check a C-Peptide for completion but insulinomas are rare (this is most likely a drug effect). - A1c in March, was 6.8%; repeated on 02/22/17 and it increased to 7.9% - again if any should be on Insulin, and probably gastroparesis would need to be excluded. 2) Electrolyte abnormalities a) Metabolic acidosis - probably in part due to high doses of Acetazolamide for Glaucoma - Continue Na Lactate drip and oral Bicarbonate. - CO2 today - 19 today was 15 yesterday. - No headache, nausea or visual disturbance. - Acetazolamide dose was cut in half. b) Hypokalemia - K down to 3 - will give PO pills and recheck later. c) Hypomagnesemia d) Mild hypernatremia on admission - improved. 3) Anorexia and weight loss, which has been worsening for months. - Probably multifactorial. - TFT's suggest pt has sick euthyroid syndrome but will re-evaluate as needed ; rT3 pending. FT3 was 2.71 (LOW) - KUB shows a dilated stomach - no impaction. - Testosterone - 568 4) Chronic a-fib, dx in 2009 and s/p cardioversion - Will check an EKG. If pt is on NSR (Bradycardia) - will decrease Diltiazem dose to allow for better tissue perfussion. - Continue flecainide & diltiazem same dose for now. - Rate controlled - BUT RATE IS LOW - Lactic acid was 2.2 then 2.1 - probably related to low output state due to bradycardia. - Can not anticoagulate due to recent GI bleed. 5) Recent GI bleed; now with ? of diarrhea. - Stopped PO narcotics/added Miralax. (05/01). - May need to have scopes as inpatient depending on his symptoms. 6) Wound care - Coccygeal pressure ulcers - Wound care. PREVENTION PUD - PANTOPRAZOLE DVT - SCD'S - Time spent with patient 25 - 35 minutes Sepsis Assessment - Evaluation Sepsis screening result: No Definite Risk Hospital Course Summary Disclaimer: The visit summary below is not to be considered part of the above Progress Note.
[2017-05-03] MEDS ORDERED: PNEUMOCOCCAL VAC ADMIN CHARGE INJ ONE (11:00)
[2017-05-03] MEDS: ATORVASTATIN 20 MG TABLET PO SCH ×2 (20:52→21:34)
[2017-05-03] MEDS: LATANOPROST 0.005% EYE DROPS 2.5ml LEFT EYE SCH (23:40)
[2017-05-04] MEDS: SODIUM ACETATE IV SCH ×2 (03:39→06:02)
[2017-05-04] MEDS: D5W IV SCH ×2 (03:39→06:02)
[2017-05-04] MEDS: PANTOPRAZOLE 20 MG TABLET PO SCH (06:01)
[2017-05-04] MEDS: GEMFIBROZIL 600 MG TABLET PO SCH ×2 (07:35→17:13)
[2017-05-04] MEDS: acetaZOLAMIDE 250 MG TABLET PO SCH (09:39)
[2017-05-04] MEDS: DUTASTERIDE 0.5 MG CAPSULE PO SCH (09:39)
[2017-05-04] MEDS: SODIUM BICARBONATE 650 MG TABLET PO SCH (09:40)
[2017-05-04] MEDS: DULOXETINE 30 MG CAPSULE PO SCH (09:40)
[2017-05-04] MEDS: FLECAINIDE 100 MG TABLET PO SCH (09:40)
[2017-05-04] MEDS: POLYETHYL GLYCOL 3350 17gm PACKET PO SCH (09:41)
[2017-05-04] MEDS: BRIMONIDINE/TIMOLOL 0.2%-0.5% EYE DROPS 5ml LEFT EYE SCH ×2 (09:41→16:13)
[2017-05-04] MEDS: EYE LEFT EYE SCH ×2 (09:42→16:13)
[2017-05-04] MEDS: DICLOFENAC 0.1% LEFT EYE SCH ×2 (09:42→16:13)
[2017-05-04] MEDS ORDERED: acetaZOLAMIDE 250 MG TABLET PO SCH (13:47)
[2017-05-04] MEDS ORDERED: POTASSIUM CHLORIDE 20 MEQ/15 ML ORAL LIQUID PO ONE (14:00)
[2017-05-04] MEDS ORDERED: MAGNESIUM OXIDE 400 MG TABLET PO ONE (14:30)
--- NOTE | 2017-05-04 14:39 | Wound Care Progress Note ---
Wound Center Progress Note: Pt know to me from previous check while pt was in ICU. Wound was a Stage III on admission. According to they have been dealing with this for "quite awhile ". The pressure inury is on the left sacral area 1 x 1.5 x .01, wound bed has yellow slough, periwound is indurated, minimal drainage. Pt being dismissed from hospital. Wound clinic number given to family and instructed to call clinic in the am and schedule an appointment.
--- NOTE | 2017-05-04 15:15 | Progress Note ---
Subjective: Pt is feeling better. HR remains in the low 50's. Pt otherwise is feeling better. Objective Vital signs: Temperature 98.7 F 05/04/17 12:05 Pulse Rate 53 L 05/04/17 12:05 Respiratory Rate 18 05/04/17 12:05 Blood Pressure 144/83 H 05/04/17 12:05 Pulse Oximetry 98 05/04/17 12:05 Oxygen Delivery Method Room Air Rhythm: Sinus Bradycardia Weight: 93 kg - Constitutional Present: no acute distress - Routine HEENT Exam Head: Present: normocephalic, atraumatic Eye: Present: EOMI, PERRL, normal accommodation - Routine Cardiovascular Exam Present: RRR, S1, S2 - Routine Abdominal Exam Present: soft, non distended, non tender - Routine Extremities Exam Absent: cyanosis, clubbing, edema - Routine Neurological Exam Present: alert, oriented X3, CN II-XII intact - Routine Psychiatric Exam Present: normal affect, cooperative, good insight, good judgment Results - Labs CBC & Chem 7: 05/04/17 04:36 05/04/17 04:36 Assessment and Plan (1) Hypoglycemia Current visit: Yes Status: Resolved Resuscitation Status: Full Code Assessment and Plan: SUMMARY - Pt was admitted to the ICU, after several episodes of hypoglycemia ( BS in the low 30's. BS in the low 20's) no clear description of a seizure and no evident brain damage, but he had signs of neuroglycopenia - was confused and obtunded, preceded by profound fatigue. He had several episodes of increasing severity. Pt oral intake has been very poor for a while and overall condition has been deteriorating gradually. As mentioned before, his diabetic medications were going to be D/C by his PCP, but were not. His oral intake dropped significantly prior to admission, but he did not stop his Glyburide or metformin. DIAGNOSIS 1) Type II DM on treatment with Glyburide and Metformin; came to the ED with persistent episodes of hypoglycemia; no seizures seen but pt had mental status changes (was obtunded when one BS was in the low 20's), was reportedly very fatigued as well. This is most likely due to combination of factors including poor oral intake and taking glyburide. - PT ADVISED NOT TO TAKE ANY MORE GLYBURIDE. - Should check BS 1 hr prior and 2 hrs post prandial and keep a log - May resume METFORMIN same dose. - Since pt has been loosing weight, to a point he appears to be malnourished if any medication is used for hyperglycemia it should be insulin (Anabolic properties). - Random Cortisol was 21 (NORMAL). - Will check a C-Peptide for completion but insulinomas are rare (this is most likely a drug effect). THIS IS PENDING ON D/C - A1c in March, was 6.8%; repeated on 02/22/17 and it increased to 7.9% - IF diabetic control is erratic may need to be assessed for GASTROPARESIS. 2) Electrolyte abnormalities a) Metabolic acidosis - probably in part due to high doses of Acetazolamide for Glaucoma, will Add Oral Bicarbonate due to his acidemia. - No headache, nausea or visual disturbance. b) Hypokalemia - persistent will D/C on low dose ACEI. c) Hypomagnesemia - Will give PO Magnesium. d) Mild hypernatremia on admission - improved. 3) Anorexia and weight loss, which has been worsening for months. - Probably multifactorial. - Could be related to a marginal low output state due to bradycardia (HR sustained at 50) Lactic acid normal - but top normal - Discussed with Industrial Psychologist - will D/C Cardizem CD and change to IR 30mg PO BID. He will have a Holter in 2 weeks. - TFT's suggest pt has sick euthyroid syndrome but will re-evaluate as needed ; rT3 pending. FT3 was 2.71 (LOW) - Testosterone - 568 4) Chronic a-fib, dx in 2009 and s/p cardioversion - Will check an EKG. If pt is on NSR (Bradycardia) - will decrease Diltiazem dose to allow for better tissue perfussion. - Continue flecainide & diltiazem but at a lower dose. - Lactic acid was 2.2 then 2.1 - probably related to low output state due to bradycardia. - Can not anticoagulate due to recent GI bleed. 5) Recent GI bleed; now with ? of diarrhea. Pt will F/U with surgeon soon 6) Wound care - Coccygeal pressure ulcers - will improve as pt is now ambulating and looks much improved. - Wound care. DISPOSITION - HOME NOW. - Time spent with patient discharge greater than 30 minutes Sepsis Assessment - Evaluation Sepsis screening result: No Definite Risk Hospital Course Summary Disclaimer: The visit summary below is not to be considered part of the above Progress Note.
[2017-05-04] MEDS ORDERED: LISINOPRIL 5 MG TABLET PO SCH (15:30)
--- NOTE | 2017-05-04 15:52 | Discharge Summary ---
Discharge Information Date of admission: 05/01/17 10:34 Attending Physician: Cortes Gonzalez MD Primary care physician: Jose Womack MD Consults: 05/01/17 12:32 [facility] Consult [CONS] Routine Reason for consultation: Decub x 2 to coccyx. Pt is diabetic 05/01/17 15:17 Dietary Consult [CONS] Routine Comment: Reason For Exam: anorexia, weight loss, coccygeal pressure sores - Discharge Diagnosis Discharge Diagnosis: SUMMARY - Pt was admitted to the ICU, after several episodes of hypoglycemia ( BS in the low 30's. BS in the low 20's) no clear description of a seizure and no evident brain damage, but he had signs of neuroglycopenia - was confused and obtunded, preceded by profound fatigue. He had several episodes of increasing severity. Pt oral intake has been very poor for a while and overall condition has been deteriorating gradually. As mentioned before, his diabetic medications were going to be D/C by his PCP, but were not. His oral intake dropped significantly prior to admission, but he did not stop his Glyburide or metformin. DIAGNOSIS 1) Type II DM on treatment with Glyburide and Metformin; came to the ED with persistent episodes of hypoglycemia; no seizures seen but pt had mental status changes (was obtunded when one BS was in the low 20's), was reportedly very fatigued as well. This is most likely due to combination of factors including poor oral intake and taking glyburide. - PT ADVISED NOT TO TAKE ANY MORE GLYBURIDE. - Should check BS 1 hr prior and 2 hrs post prandial and keep a log - May resume METFORMIN same dose. - Random Cortisol was 21 (NORMAL). - Will check a C-Peptide for completion but insulinomas are rare (this is most likely a drug effect). THIS IS PENDING ON D/C - A1c in March, was 6.8%; repeated on 02/22/17 and it increased to 7.9% - IF diabetic control is erratic may need to be assessed for GASTROPARESIS. 2) Electrolyte abnormalities a) Metabolic acidosis - probably in part due to high doses of Acetazolamide for Glaucoma, will Add Oral Bicarbonate due to his acidemia. Also lactic acid was borderline high, which could be related to low output state (Bradycardia) this was discussed with cardiology Dr Littlejohn - and the Cardizem dose was adjusted. b) Hypokalemia - persistent will D/C on low dose ACEI. c) Hypomagnesemia - Will give PO Magnesium. d) Mild hypernatremia on admission - improved. 3) Anorexia and weight loss, which has been worsening for months. MULTIFACTORIAL - Pt reports feeling much improved now. - Could be related to a marginal low output state due to bradycardia (HR sustained at 50) Lactic acid normal - but top normal - Discussed with Tailman - will D/C Cardizem CD and change to IR 30mg PO BID. He will have a Holter in 2 weeks. - TFT's suggest pt has sick euthyroid syndrome but will re-evaluate as needed ; rT3 pending. FT3 was 2.71 (LOW) - Testosterone - 568 A) VITAMIN D DEFICIENCY - Level of 25-OH Vitamin D was 15 (Normal is more than 30) - D/C On Vit D 50,000 units x 10 doses, then reasses. 4) Chronic a-fib, dx in 2009 and s/p cardioversion - Will check an EKG. If pt is on NSR (Bradycardia) - Cardizem dose decreased to allow for a higher but normal HR. - Continue flecainide & diltiazem but at a lower dose. - Lactic acid was 2.2 then 2.1 - probably related to low output state due to bradycardia. - Can not anticoagulate due to recent GI bleed. 5) Recent GI bleed; now with ? of diarrhea. Pt will F/U with surgeon soon. Pt verbalized understading. 6) Wound care - Coccygeal pressure ulcers - will improve as pt is now ambulating and looks much improved. - Wound care. PENDING LABS - C-Peptide. DISPOSITION - HOME NOW. - Laboratory Labs: 05/04/17 04:36 05/04/17 04:36 History of Present Illness HPI: Mr Gao is being readmitted for symptomatic hypoglycemia. He was admitted over the weekend for GI bleed with stable anemia, and his Xarelto was placed on hold x 2 weeks. His states that while the bleeding has stopped, he still has loose frequent stools that are malodorous. She reports that last night he had a BGM of 41. He was just sitting there, staring, glassy eyed. He was incontinent of urine and stool. She was able to get him to drink Glucerna x2 cans, and then with great difficulty, was able to help him walk out to the car and drove him to the hospital. In the ED he received an amp of D50 plus ate some peanut butter and crackers and drank a coke, and became briefly hyperglycemic. He was discharged home with BGM of 82 and his was instructed to have him eat a big meal, drink a Glucerna, and hold oral diabetes meds today. However, when they got home she couldn't get him out of the car and and was not very responsive. He couldn't eat the [employer] meal that she had just purchased. She rechecked his blood sugar, and it was 39. She then called 911, and when EMS came out it was down to 31. EMS gave an amp of D50 and took him back to [facility], where he received another amp of D50. He was then admitted to the CCU. Positive ROS: Poor oral intake for "months" with weight loss. He weighed 240 lbs in July, and now is 204 lbs. He's lost 10-15 lbs in the last 2 months. At a recent office visit with Dr. Womack, they discussed discontinuing diabetic medications, but decided to continue for now. Since he's lost so much weight he's developed 2 decubitus ulcers, which they have been using A&D or Neosporin + NuSkin to treat at home with good improvement. Also notes some choking, typically on beef. This occurs every 2-3 months but his states it' s been occurring more frequently. He states if the bite of meat doesn't go down with milk he self-induces vomiting. Had brief headache on Monday and took a rare Percocet. He used to take MS Contin for eye pain/headache, but this was discontinued a few weeks ago. (He had been on MS Contin since March after a left eye lens implant). His vision is improving and headaches have subsided. Objective Vital signs: Temperature 98.7 F 05/04/17 12:05 Pulse Rate 53 L 05/04/17 12:05 Respiratory Rate 18 05/04/17 12:05 Blood Pressure 144/83 H 05/04/17 12:05 Pulse Oximetry 98 05/04/17 12:05 Oxygen Delivery Method Room Air Rhythm: Sinus Bradycardia Weight: 93 kg Hospital Course This is a general summary of the patient's hospital course. For more details refer to the complete medical record. Discharge Plan - Med Rec/Dispo Prescriptions: New DiltiaZEM IR [Cardizem Ir] 30 mg PO ACBID #60 tablet Lisinopril [Prinivil] 5 mg PO DAILY #30 tablet PEG 3350 17gm PACKET [Miralax] 17 gm PO DAILY packet Saline Flush [IV Flush] 10 - 80 ml IVF PRN PRN syringe Diclofenac [Voltaren] 1 drop LEFT EYE TID bottle Pantoprazole Sodium [Protonix] 20 mg PO ACB tablet. Sodium Bicarbonate [Sodium Bicarbonate] 1,300 mg PO BID #120 tablet Ergocalciferol (Vit. D2) [Vitamin D-2] 50,000 unit PO Q7D #10 capsule Continue Dutasteride [Avodart] 0.5 mg PO DAILY #0 Metformin HCl 500 mg PO BID #0 Latanoprost 1 drop BOTH EYES HS #0 Gabapentin [Neurontin] 600 mg PO TID #30 Gemfibrozil 600 mg PO BID #0 Atorvastatin Calcium [Lipitor] 20 mg PO HS #0 tab Flecainide [Tambocor] 100 mg PO BID #0 tab Doxycycline Hyclate 100 mg PO DAILY PRN #0 PRN Reason: ACNE Brimonidine Tartrate/Timolol [Combigan 0.2%-0.5% Eye Drops] 1 drop LEFT EYE TID #0 Oxycodone/APAP 7.5/325 [Percocet 7.5/325] 1 tab PO Q4H PRN #10 PRN Reason: Pain Duloxetine [Cymbalta] 30 mg PO DAILY #20 cap Sodium Bicarbonate [Sodium Bicarbonate] 650 mg PO BID diclofenac 0.1 % eye drops 1 drop LEFT EYE TID #5 ml acetazolamide ER 500 mg capsule,extended release 500 mg PO BID #20 cap Discontinued glyBURIDE [Glyburide] 5 mg PO BID #0 tab dilTIAZem HCl [Cartia Xt] 180 mg PO DAILY #0 - Disposition 01 Discharged Home, Self-Care
[2017-05-04 16:10] VITALS: BP 137/71; PULSE 56; RESP 20; TEMP 97.4; O2SAT 99
[2017-05-04] MEDS ORDERED: ERGOCALCIFEROL 50,000 UNIT CAPSULE PO SCH (16:15)
[2017-05-04] MEDS ORDERED: DiltiaZEM IR 30 MG TABLET PO SCH (17:00)
[2017-05-04] MEDS ORDERED: METFORMIN 500 MG TABLET PO SCH (17:30)
== END 2017-05-04 17:35 | disposition home or self-care (01) | DRG 637 ==
LOC: ED 10:02 → CCU 10:34 → MED 05-03 11:45
PROVIDERS: ADMIT Internal Medicine; ATTEND Internal Medicine